=== PATIENT | female | born 1985 | race Hispanic/Latino ===

== ENCOUNTER 2017-02-23 14:59 | Emergency (ER) | payer MEDICAID ==
--- NOTE | 2017-02-23 16:13 | Emergency Department Report ---
HPI - General Chief Complaint: Psych Time Seen by Provider: 02/23/17 15:59 - HPI HPI: Room 13 The patient is a 32-year-old female presenting with chief complaint of suicidal ideation. The patient has a history of schizoaffective disorder, PTSD and anxiety. The patient admits to being suicidal ideation for "a while." The patient states she planned on overdosing on pills. Patient denies actually attempting to harm herself. The patient is hyperverbal states that she is 89 years old. Please states they were called because the patient had a bag full of pills that she threatened to take Location: Mental state Duration: "A while" Quality: Suicidal Severity: Severe Modifying factors: [see above] Context: [see above] Mode of transportation: [not driving] ED Past Medical Hx - Past Medical History Previous Medical History?: Yes Hx Psychiatric Treatment: Yes (Schizoaffective disorder, PTSD, Anxiety) Hx HIV: Yes - Surgical History Past Surgical History?: Yes Additional Surgical History: Oral - Family History Family history: no significant - Social History Smoking Status: Current Every Day Smoker - Medications Home Medications: Home Medications Medication Instructions Recorded Confirmed Last Taken Type Abacavir/Dolutegravir/Lamivudi 1 each PO DAILY 02/23/17 02/23/17 Unknown History [Triumeq Tablet] Buspirone HCl [busPIRone] 30 mg PO BID 02/23/17 02/23/17 Unknown History OXcarbazepine 600 mg PO Q12H 02/23/17 02/23/17 Unknown History OXcarbazepine [Trileptal] 600 mg PO BID 02/23/17 02/23/17 Unknown History Olanzapine [ZyPREXA] 20 mg PO HS 02/23/17 02/23/17 Unknown History Formula Tablet 1 tab PO DAILY 02/23/17 02/23/17 Unknown History Tenofovir [Viread] 300 mg PO QDAY 02/23/17 02/23/17 Unknown History busPIRone 10 mg PO DAILY 02/23/17 02/23/17 Unknown History valACYclovir 500 mg PO DAILY 02/23/17 02/23/17 Unknown History ED Review of Systems ROS: Stated complaint: MH Other details as noted in HPI Comment: Unobtainable due to pts medical conditions Constitutional: denies: chills, fever Eyes: denies: eye pain, eye discharge, vision change ENT: denies: ear pain, throat pain Respiratory: denies: cough, shortness of breath, wheezing Cardiovascular: denies: chest pain, palpitations Endocrine: no symptoms reported Gastrointestinal: denies: abdominal pain, nausea, diarrhea Genitourinary: denies: urgency, dysuria, discharge Psychiatric: suicidal thoughts Physical Exam - Physical Exam Vital Signs: Vital Signs 02/23/17 15:06 Temperature 98.8 F Pulse Rate 76 Respiratory 18 Rate Blood Pressure 116/77 O2 Sat by Pulse 99 Oximetry Physical Exam: GENERAL: The patient is well-developed well-nourished female sitting on stretcher hyperverbal. [] HEENT: Normocephalic. Atraumatic. Extraocular motions are intact. Patient has moist mucous membranes. NECK: Supple. Trachea midline CHEST/LUNGS: Clear to auscultation. There is no respiratory distress noted. HEART/CARDIOVASCULAR: Regular. There is no tachycardia. There is no gallop rub or murmur. ABDOMEN: Abdomen is soft, nontender. Patient has normal bowel sounds. There is no abdominal distention. SKIN: There is no rash. There is no edema. There is no diaphoresis. NEURO: The patient is awake, and alert. The patient is cooperative. The patient has normal speech MUSCULOSKELETAL: There is no evidence of acute injury. ED Course Vital Signs 02/23/17 15:06 Temperature 98.8 F Pulse Rate 76 Respiratory 18 Rate Blood Pressure 116/77 O2 Sat by Pulse 99 Oximetry ED Medical Decision Making - Lab Data Result diagrams: 02/23/17 15:36 02/23/17 15:36 Laboratory Tests 02/23/17 02/23/17 02/23/17 15:36 15:36 15:36 WBC 4.3 L RBC 3.75 Hgb 13.5 Hct 37.8 MCV 101 H MCH 36 H MCHC 36 H RDW 13.7 Plt Count 149 Lymph % (Auto) 22.4 [place] % (Auto) 5.3 Eos % (Auto) 0.1 Baso % (Auto) 0.8 Lymph # 1.0 L [place] # 0.2 Eos # 0.0 Baso # 0.0 Seg Neutrophils % 71.1 H Seg Neutrophils # 2.6 Sodium 129 L Potassium 3.3 L Chloride 93.2 L Carbon Dioxide 19 L Anion Gap 20 BUN < 1 L Creatinine 0.6 L Estimated GFR > 60 BUN/Creatinine Ratio 1.66 Glucose 121 H Calcium 8.3 L Salicylates Acetaminophen Plasma/Serum Alcohol < 0.01 02/23/17 02/23/17 16:00 16:00 WBC RBC Hgb Hct MCV MCH MCHC RDW Plt Count Lymph % (Auto) [place] % (Auto) Eos % (Auto) Baso % (Auto) Lymph # [place] # Eos # Baso # Seg Neutrophils % Seg Neutrophils # Sodium Potassium Chloride Carbon Dioxide Anion Gap BUN Creatinine Estimated GFR BUN/Creatinine Ratio Glucose Calcium Salicylates < 0.3 L Acetaminophen < 15.0 Plasma/Serum Alcohol - Differential Diagnosis suicidal ideation Critical care attestation.: If time is entered above; I have spent that time in minutes in the direct care of this critically ill patient, excluding procedure time. ED Disposition Clinical Impression: Suicidal ideation Disposition: DC/[place]-65 PSY HOSP/PSY UNIT Is pt being admited?: No Does the pt Need Aspirin: No Condition: Serious Time of Disposition: 18:55 (awaiting acceptance)
[2017-02-23 16:17] LABS: Eosinophils % (Auto) 0.1 % (0.0-4.3)
[2017-02-23 16:33] LABS: Anion Gap 20 mmol/L; Calcium 8.3 mg/dL (8.4-10.2); Carbon Dioxide 19 mmol/L (22-30); Chloride 93.2 mmol/L (98-107); Glucose 121 mg/dL (65-100); Potassium 3.3 mmol/L (3.6-5.0); Sodium 129 mmol/L (137-145)
[2017-02-23 16:52] LABS: BUN/Creatinine Ratio 1.66; Blood Urea Nitrogen < 1 mg/dL (7-17)
[2017-02-23 17:24] LABS: Basophils % (Auto) 0.8 % (0.0-1.8); Hematocrit 37.8 % (30.3-42.9); Hemoglobin 13.5 gm/dl (10.1-14.3); Mean Corpuscular HGB Conc 36 % (30-34); Mean Corpuscular Hemoglobin 36 pg (28-32); Mean Corpuscular Volume 101 fl (79-97); Platelet Count 149 K/mm3 (140-440); Red Blood Count 3.75 M/mm3 (3.65-5.03); Red Cell Distribution Width 13.7 % (13.2-15.2); White Blood Count 4.3 K/mm3 (4.5-11.0)
[2017-02-23] MEDS ORDERED: HALDOL IM PRN (18:53)
[2017-02-23] MEDS ORDERED: ATIVAN IM PRN (18:53)
[2017-02-23] MEDS ORDERED: BENADRYL IM PRN (18:53)
[2017-02-23] MEDS ORDERED: K-DUR PO ONE (18:55)
[2017-02-23 19:45] LABS: Urine Drugs of Abuse Note Disclamer
[2017-02-23 19:54] LABS: Bilirubin,Urine NEG (Negative); Blood,Urine NEG (Negative); Ketones,Urine NEG (Negative); Leukocyte Esterase,Urine TR (Negative); Mucus,Urine FEW /HPF; Nitrite,Urine NEG (Negative); Protein,Urine <15 mg/dL mg/dL (Negative); Urobilinogen,Urine < 2.0 mg/dL (<2.0); WBC,Urine < 1.0 /HPF (0.0-6.0)
[2017-02-24 01:49] VITALS: BP 110/56
== END 2017-02-24 00:30 ==
LOC: ED 14:59
DX: R45.851 Suicidal ideations (principal); F20.9 Schizophrenia, unspecified; F41.9 Anxiety disorder, unspecified; Z88.8 Allergy status to other drugs, medicaments and biological substances
CPT/HCPCS: 36415; 80048; 80307; 81001; 81025; 85025; 99285; G0480; 80320

== ENCOUNTER 2017-12-03 20:48 | Emergency (ER) | payer MEDICAID ==
--- NOTE | 2017-12-03 21:25 | Emergency Department Report ---
HPI - General Chief Complaint: Psych Time Seen by Provider: 12/03/17 21:00 - HPI HPI: The patient is a 32-year-old female presents for evaluation of mental health. The patient reports constant severe sadness, depression, hopelessness for the past 5 days, elicited by the of her father 5 days ago. She also reports positive suicidal ideations for the past 2 days. The patient denies fever, headache, unexplained weight loss or weight gain, heat or cold intolerance, skin , hair, or nail changes, neuro deficits, homicidal ideations, or auditory or visual hallucinations. ED Past Medical Hx - Past Medical History Previous Medical History?: Yes Hx Psychiatric Treatment: Yes (Schizoaffective disorder, PTSD, Anxiety) Hx HIV: Yes - Surgical History Past Surgical History?: No Additional Surgical History: Oral - Social History Smoking Status: Current Every Day Smoker - Medications Home Medications: Home Medications Medication Instructions Recorded Confirmed Last Taken Type Abacavir/Dolutegravir/Lamivudi 1 each PO DAILY 02/23/17 02/23/17 Unknown History [Triumeq Tablet] Buspirone HCl [busPIRone] 30 mg PO BID 02/23/17 02/23/17 Unknown History OXcarbazepine 600 mg PO Q12H 02/23/17 02/23/17 Unknown History OXcarbazepine [Trileptal] 600 mg PO BID 02/23/17 02/23/17 Unknown History Olanzapine [ZyPREXA] 20 mg PO HS 02/23/17 02/23/17 Unknown History Formula Tablet 1 tab PO DAILY 02/23/17 02/23/17 Unknown History Tenofovir [Viread] 300 mg PO QDAY 02/23/17 02/23/17 Unknown History busPIRone 10 mg PO DAILY 02/23/17 02/23/17 Unknown History valACYclovir 500 mg PO DAILY 02/23/17 02/23/17 Unknown History ED Review of Systems ROS: Stated complaint: MH EVAL/MED CLEARANCE Other details as noted in HPI Constitutional: denies: fever ENT: denies: throat or neck pain Respiratory: denies: cough shortness of breath Cardiovascular: denies: chest pain Endocrine: denies unexplained weight loss or gain Gastrointestinal: denies: abdominal pain, nausea Genitourinary: denies: dysuria Musculoskeletal: denies: leg swelling Skin: denies: rash Neurological: denies: headache Hematological/Lymphatic: denies: easy bleeding or easy bruising Psych: reports sadness or hopelessness Comment: All other systems reviewed and negative Physical Exam - Physical Exam Vital Signs: Vital Signs 12/03/17 21:07 Temperature 98.7 F Pulse Rate 72 Respiratory 17 Rate Blood Pressure 127/89 Physical Exam: General: well-nourished, well-developed, no acute distress Head: Normocephalic, atraumatic Eyes: normal sclera ENT: Mucous membranes are pink and moist Neck: trachea midline, neck supple, No neck stiffness, no cervical adenopathy Respiratory: Breath sounds equal bilaterally, no wheezing, rales, or rhonchi Cardio: S1 and S2 present, no murmurs, rubs, gallops, capillary refill is brisk Abdomen: Normoactive bowel sounds, soft abdomen, no rigidity, no guarding or rebound tenderness Chest WALL/Back: No tenderness to palpation of the chest wall, no CVA tenderness with percussion Musc: No pitting edema Skin: No rash Neuro: no facial drooping, normal speech Psych: flat affect, depressed mood, poor insight, + SI ED Course Vital Signs 12/03/17 21:07 Temperature 98.7 F Pulse Rate 72 Respiratory 17 Rate Blood Pressure 127/89 ED Medical Decision Making - Lab Data Result diagrams: 12/03/17 21:18 12/03/17 21:18 - Medical Decision Making The patient was seen and examined by myself. The patient is placed on a panel monitor and continuous pulse ox. On initial evaluation, the patient was found to be in no distress. Labs are obtained. Lab results are grossly unremarkable. The patient is medically clear. Mental health is consulted. Mental health evaluates the patient and agrees that the patient is at risk of harm to self. A 1013 is completed. The patient will be admitted to a psychiatric facility once bed placement is obtained. Critical care attestation.: If time is entered above; I have spent that time in minutes in the direct care of this critically ill patient, excluding procedure time. ED Disposition Clinical Impression: Suicidal ideation, Acute psychosis Disposition: DC/TX-65 PSY HOSP/PSY UNIT Is pt being admited?: No Does the pt Need Aspirin: No Condition: Stable Referrals: PRIMARY CARE, [Primary Care Provider] - 3-5 Days Time of Disposition: 22:00
[2017-12-03 21:32] LABS: Basophils % (Auto) 0.7 % (0.0-1.8); Eosinophils # (Auto) 0.1 K/mm3 (0.0-0.4); Eosinophils % (Auto) 0.8 % (0.0-4.3); Hematocrit 40.7 % (30.3-42.9); Hemoglobin 14.4 gm/dl (10.1-14.3); Lymphocytes # (Auto) 1.5 K/mm3 (1.2-5.4); Mean Corpuscular HGB Conc 35 % (30-34); Mean Corpuscular Hemoglobin 34 pg (28-32); Mean Corpuscular Volume 96 fl (79-97); Monocytes # (Auto) 0.4 K/mm3 (0.0-0.8); Monocytes % (Auto) 5.4 % (0.0-7.3); Platelet Count 142 K/mm3 (140-440); Red Blood Count 4.23 M/mm3 (3.65-5.03); Red Cell Distribution Width 12.8 % (13.2-15.2)
[2017-12-03 21:33] LABS: Bilirubin,Urine NEG (Negative); Blood,Urine SM (Negative); Color,Urine Straw (Yellow); Protein,Urine <15 mg/dL mg/dL (Negative); RBC,Urine < 1.0 /HPF (0.0-6.0); Urobilinogen,Urine < 2.0 mg/dL (<2.0)
[2017-12-03 21:49] LABS: BUN/Creatinine Ratio 4; Blood Urea Nitrogen 2 mg/dL (7-17); Calcium 8.6 mg/dL (8.4-10.2); Hemolysis Index 10
[2017-12-03 21:51] LABS: Amphetamine Screen,Urine PRESUMPTIVE NEGATIVE; Benzodiazepines Screen,Urine PRESUMPTIVE NEGATIVE; Cannabinoid Screen,Urine PRESUMPTIVE NEGATIVE; Cocaine Screen,Urine PRESUMPTIVE NEGATIVE; Methadone Screen,Urine PRESUMPTIVE NEGATIVE; Opiate Screen,Urine PRESUMPTIVE NEGATIVE
[2017-12-04 02:58] VITALS: BP 115/75
== END 2017-12-04 02:56 ==
LOC: ED 20:48
DX: F23 Brief psychotic disorder (principal); F25.9 Schizoaffective disorder, unspecified; F43.10 Post-traumatic stress disorder, unspecified; F41.9 Anxiety disorder, unspecified; F17.200 Nicotine dependence, unspecified, uncomplicated; Z88.1 Allergy status to other antibiotic agents; Z88.8 Allergy status to other drugs, medicaments and biological substances
CPT/HCPCS: 36415; 80048; 80307; 81001; 84703; 85025; 99285; G0480; 80320

== ENCOUNTER 2019-08-14 13:46 | Emergency (ER) | payer MEDICAID ==
--- NOTE | 2019-08-14 14:46 | Event Note ---
ED Screening Note Date of service: 08/14/19 Time: 14:41 ED Screening Note: This is a 34 y.o. F. that presents to the ER with LLE swelling and pain for 3-4 days. She also reports LUE weakness. Patient states she was taking eliquis for 3 months for a DVT to LLE and quit taking it 2 months. PMH of HIV and schizophrenia This initial assessment/diagnostic orders/clinical plan/treatment(s) is/are subject to change based on patients health status, clinical progression and re- assessment by fellow clinical providers in the ED. Further treatment and workup at subsequent clinical providers discretion. Patient/guardian urged not to elope from the ED as their condition may be serious if not clinically assessed and managed. Initial orders include: Doppler of LLE Labs
[2019-08-14 15:39] LABS: Alanine Aminotransferase 9 units/L (7-56); Albumin 3.3 g/dL (3.9-5); BUN/Creatinine Ratio 11; Blood Urea Nitrogen 8 mg/dL (7-17); Calcium 9.2 mg/dL (8.4-10.2); Hemolysis Index 2
[2019-08-14 16:10] LABS: Basophils % (Auto) 0.2 % (0.0-1.8); Hematocrit 30.9 % (30.3-42.9); Hemoglobin 10.2 gm/dl (10.1-14.3); Lymphocytes # (Auto) 0.8 K/mm3 (1.2-5.4); Mean Corpuscular HGB Conc 33 % (30-34); Mean Corpuscular Volume 93 fl (79-97); Monocytes # (Auto) 0.6 K/mm3 (0.0-0.8); Monocytes % (Auto) 4.9 % (0.0-7.3); Platelet Count 430 K/mm3 (140-440); Red Blood Count 3.33 M/mm3 (3.65-5.03); Red Cell Distribution Width 19.4 % (13.2-15.2)
--- NOTE | 2019-08-14 17:16 | Vascular Lab Report ---
DUPLEX DOPPLER LOWER EXTREMITY VEINS, LEFT INDICATION: Left leg pain and swelling. TECHNIQUE: Duplex doppler imaging was performed through the veins of the left lower extremity using venous compr ession and other maneuvers. COMPARISON: None available. FINDINGS: Common femoral vein: Near occlusive thrombus. Superficial femoral vein: Near occlusive thrombus. Popliteal vein: Near occlusive thrombus. Calf veins: Near occlusive thrombus. Additional findings: There is also occlusive thrombus in the greater saphenous vein in the upper thig h and there is nonocclusive thrombus in the visualized left external iliac vein. IMPRESSION: Near occlusive deep venous thrombosis involving the majority of the left lower extremity. Signer Name: Ezequiel Wolff MD Signed: 08/14/2019 5:11 PM Workstation Name: [id number]
--- NOTE | 2019-08-14 17:16 | Vascular Lab Report ---
Left upper extremity venous Doppler INDICATION: Possible DVT. Left arm numbness. COMPARISON: None available. FINDINGS: No superficial or deep venous thrombosis is seen along the left upper extremity. The included soft tissues are unremarkable. IMPRESSION: No sonographic evidence of DVT in the left upper extremity. Signer Name: Johnson Junior MD Signed: 08/14/2019 5:12 PM Workstation Name: [id number]
--- NOTE | 2019-08-14 18:50 | Emergency Department Report ---
ED Neuro Deficit HPI - General Chief Complaint: Weakness Stated Complaint: LEFT LEG PAIN Time Seen by Provider: 08/14/19 18:35 Source: patient Mode of arrival: Wheelchair Limitations: Physical Limitation - History of Present Illness Initial Comments: Patient is a 34-year-old female that presents emergency room with complaints of left leg pain 3 days and left arm weakness 3 days. Patient states unable to walk due to her left leg pain. Patient states she is having numbness in her left arm as well. Patient states that she is able to walk due to the left leg pain. Patient denies fever chills. Patient states she had a history of DVTs but is not taking any anticoagulation therapy. Patient states she's been to multiple hospitals but keeps leaving AMA. -: Sudden Location: left arm, left leg Presenting Symptoms: Present: Weak/Paralyzed One Side History of same: Yes Place: home Severity: severe Improves With: none Worsens With: none On Anticoagulants: No Context: sudden onset Associated Symptoms: weakness. denies: confusion, chest pain, cough, diaphoresis, fever/chills, headaches, loss of appetite, malise, nausea/vomiting, vertigo, seizures, shortness of breath, syncope - Related Data Home Medications: Home Medications Medication Instructions Recorded Confirmed Last Taken Abacavir/Dolutegravir/Lamivudi 1 each PO DAILY 02/23/17 08/14/19 Unknown [Triumeq Tablet] Buspirone HCl [busPIRone] 30 mg PO BID 02/23/17 08/14/19 Unknown OXcarbazepine 600 mg PO Q12H 02/23/17 08/14/19 Unknown Olanzapine [ZyPREXA] 20 mg PO HS 02/23/17 08/14/19 Unknown Tenofovir [Viread] 300 mg PO QDAY 02/23/17 08/14/19 Unknown valACYclovir 500 mg PO DAILY 02/23/17 08/14/19 Unknown clonazePAM [KlonoPIN] 2 mg PO BID 08/14/19 08/14/19 Unknown Previous Rx's Medication Instructions Recorded Last Taken Type Apixaban [Eliquis] 5 mg PO BID #40 tablet 08/14/19 Unknown Rx Allergies/Adverse Reactions: Allergies Allergy/AdvReac Type Severity Reaction Status Date / Time divalproex sodium Allergy Unknown Verified 02/23/17 15:13 [From Depakote] risperidone [From Risperdal] Allergy Unknown Verified 02/23/17 15:13 ED Review of Systems ROS: Stated complaint: LEFT LEG PAIN Other details as noted in HPI Constitutional: denies: chills, fever Eyes: denies: eye pain, eye discharge, vision change ENT: denies: ear pain, throat pain Respiratory: denies: cough, shortness of breath, wheezing Cardiovascular: denies: chest pain, palpitations Endocrine: no symptoms reported Gastrointestinal: denies: abdominal pain, nausea, diarrhea Genitourinary: denies: urgency, dysuria, discharge Musculoskeletal: denies: back pain, joint swelling, arthralgia Skin: denies: rash, lesions Neurological: weakness. denies: headache, paresthesias Psychiatric: denies: anxiety, depression Hematological/Lymphatic: denies: easy bleeding, easy bruising ED Past Medical Hx - Past Medical History Previous Medical History?: Yes Hx Psychiatric Treatment: Yes (Schizoaffective disorder, PTSD, Anxiety) Hx HIV: Yes - Surgical History Past Surgical History?: Yes Additional Surgical History: Oral - Family History Family history: no significant - Social History Smoking Status: Heavy Tobacco Smoker Substance Use Type: None - Medications Home Medications: Home Medications Medication Instructions Recorded Confirmed Last Taken Type Abacavir/Dolutegravir/Lamivudi 1 each PO DAILY 02/23/17 08/14/19 Unknown History [Triumeq Tablet] Buspirone HCl [busPIRone] 30 mg PO BID 02/23/17 08/14/19 Unknown History OXcarbazepine 600 mg PO Q12H 02/23/17 08/14/19 Unknown History Olanzapine [ZyPREXA] 20 mg PO HS 02/23/17 08/14/19 Unknown History Tenofovir [Viread] 300 mg PO QDAY 02/23/17 08/14/19 Unknown History valACYclovir 500 mg PO DAILY 02/23/17 08/14/19 Unknown History Apixaban [Eliquis] 5 mg PO BID #40 tablet 08/14/19 Unknown Rx clonazePAM [KlonoPIN] 2 mg PO BID 08/14/19 08/14/19 Unknown History ED Neuro Physical Exam - General Limitations: No Limitations General appearance: alert, in no apparent distress Suspected Stroke: Yes - Head Head exam: Present: atraumatic, normocephalic - Eye Eye exam: Present: normal appearance - ENT ENT exam: Present: mucous membranes moist - Neck Neck exam: Present: normal inspection - Respiratory Respiratory exam: Present: respiratory distress, rhonchi - Cardiovascular Cardiovascular Exam: Present: regular rate, normal rhythm. Absent: systolic murmur, diastolic murmur, rubs, gallop - GI/Abdominal GI/Abdominal exam: Present: soft, normal bowel sounds. Absent: distended, tenderness - Rectal Rectal exam: Present: deferred - Extremities Exam Extremities exam: Present: tenderness, pedal edema, calf tenderness - Back Exam Back exam: Present: normal inspection - Neurological Exam Neurological exam: Present: alert, oriented X3 - NIHSS Assessment Interval: Baseline 1a. Level of Consciousness: alert/keenly responsive 1b. LOC Questions: answers both correctly 1c. LOC Commands: performs tasks correctly 2. Best Gaze: normal 3. Visual: no visual loss 4. Facial Palsy: normal symmetrical movement 5b. Motor Arm Right: no drift 5a. Motor Arm Left: drift 6a. Motor Leg Left: no drift 6b. Motor Leg Right: no drift 7. Limb Ataxia: absent 8. Sensory: normal 9. Best Language: no aphasia 10. Dysarthria: normal 11. Extinction/Inattention: no abnormality Total Score: 1 Stroke Severity: Minor Stroke - Psychiatric Psychiatric exam: Present: normal affect, normal mood - Skin Skin exam: Present: warm, dry, intact, normal color. Absent: rash ED Course Vital Signs 08/14/19 08/14/19 08/14/19 13:51 18:53 18:59 Temperature 97.9 F Pulse Rate 90 Respiratory 16 18 Rate Blood Pressure 101/62 109/67 Blood Pressure [Left] O2 Sat by Pulse 97 99 Oximetry 08/14/19 08/14/19 08/14/19 19:01 19:13 19:23 Temperature 98.1 F Pulse Rate 122 H 99 H Respiratory 26 H Rate Blood Pressure 107/58 107/58 Blood Pressure 103/60 [Left] O2 Sat by Pulse 98 Oximetry 08/14/19 08/14/19 08/14/19 19:30 19:46 20:00 Temperature Pulse Rate 116 H 133 H 112 H Respiratory 14 27 H 21 Rate Blood Pressure 107/58 107/58 107/58 Blood Pressure [Left] O2 Sat by Pulse Oximetry 08/14/19 08/14/19 08/14/19 20:16 20:30 21:00 Temperature Pulse Rate 124 H 123 H Respiratory 15 20 Rate Blood Pressure 103/60 108/66 Blood Pressure [Left] O2 Sat by Pulse 97 Oximetry 08/14/19 08/14/19 08/14/19 21:13 21:16 21:30 Temperature Pulse Rate 124 H 122 H 123 H Respiratory Rate Blood Pressure 125/71 125/71 97/78 Blood Pressure [Left] O2 Sat by Pulse Oximetry 08/14/19 08/14/19 08/14/19 21:46 22:00 22:40 Temperature Pulse Rate 120 H Respiratory 14 Rate Blood Pressure 108/66 120/68 Blood Pressure [Left] O2 Sat by Pulse 96 Oximetry 08/14/19 23:00 Temperature Pulse Rate Respiratory Rate Blood Pressure 103/54 Blood Pressure [Left] O2 Sat by Pulse Oximetry - Reevaluation(s) Reevaluation #1: Initial evaluation done. Patient found to have left arm weakness and drift. Patient is outside the window of TPA however we will run a stroke protocol but the patient is not a candidate for TPA. Patient had a ultrasound done and it shows a nearly occlusive DVT in his entire left leg. Patient will be placed on heparin once the patient has a head CT. Patient also has abnormal lung sounds on lung exam and patient will have a chest x-ray. 08/14/19 18:53 Reevaluation #2: CT head shows no hemorrhage. Patient has on his her CT A embolic phenomenon. Patient placed on heparin for these findings as well as her DVT. Patient will still have a CTA of the head and neck. Once the CTA is resulted, the heparin drip will be started 08/14/19 21:46 Reevaluation #3: Patient states she wants to leave the hospital so she can go smoke. Patient states she start of waiting. Patient states she will sign the AMA form. I discussed the risk of leaving hospital AGAINST MEDICAL ADVICE. Patient voiced understanding risk of leaving AMA. Patient signed AMA form. I discussed all results with patient. Patient voiced understanding of results. The patient is alert and oriented 4. 08/14/19 23:46 - Lab Data Result diagrams: 08/14/19 21:50 08/14/19 15:00 Lab Results 08/14/19 08/14/19 08/14/19 Range/Units 15:00 15:00 18:56 WBC 12.9 H (4.5-11.0) K/mm3 RBC 3.33 L (3.65-5.03) M/mm3 Hgb 10.2 (10.1-14.3) gm/dl Hct 30.9 (30.3-42.9) % MCV 93 (79-97) fl MCH 31 (28-32) pg MCHC 33 (30-34) % RDW 19.4 H (13.2-15.2) % Plt Count 430 (140-440) K/mm3 Lymph % (Auto) 6.0 L (13.4-35.0) % [place] % (Auto) 4.9 (0.0-7.3) % Eos % (Auto) 0.0 (0.0-4.3) % Baso % (Auto) 0.2 (0.0-1.8) % Lymph # 0.8 L (1.2-5.4) K/mm3 [place] # 0.6 (0.0-0.8) K/mm3 Eos # 0.0 (0.0-0.4) K/mm3 Baso # 0.0 (0.0-0.1) K/mm3 Seg Neutrophils % [employer] Seg Neutrophils # 11.5 H (1.8-7.7) K/mm3 PT 13.3 (12.2-14.9) Sec. INR 1.00 (0.87-1.13) APTT 41.6 H (24.2-36.6) Sec. Thrombin Time 15.9 (15.1-19.6) Sec. Sodium 123 L (137-145) mmol/L Potassium 4.1 (3.6-5.0) mmol/L Chloride 88.5 L (98-107) mmol/L Carbon Dioxide 19 L (22-30) mmol/L Anion Gap 20 mmol/L BUN 8 (7-17) mg/dL Creatinine 0.7 (0.7-1.2) mg/dL Estimated GFR > 60 ml/min BUN/Creatinine Ratio 11 % Glucose 84 (65-100) mg/dL Calcium 9.2 (8.4-10.2) mg/dL Total Bilirubin 0.50 (0.1-1.2) mg/dL AST 18 (5-40) units/L ALT 9 (7-56) units/L Alkaline Phosphatase 185 H (35-129) units/L Total Creatine Kinase (30-135) units/L CK-MB (CK-2) (0.0-4.0) ng/mL CK-MB (CK-2) Rel Index (0-4) Troponin T (0.00-0.029) ng/mL Total Protein 8.9 H (6.3-8.2) g/dL Albumin 3.3 L (3.9-5) g/dL Albumin/Globulin Ratio 0.6 % Urine Color (Yellow) Urine Turbidity (Clear) Urine pH (5.0-7.0) Ur Specific [place] (1.003-1.030) Urine Protein (Negative) mg/dL Urine Glucose (UA) (Negative) mg/dL Urine Ketones (Negative) mg/dL Urine Blood (Negative) Urine Nitrite (Negative) Urine Bilirubin (Negative) Urine Urobilinogen (<2.0) mg/dL Ur Leukocyte Esterase (Negative) Urine WBC (Auto) (0.0-6.0) /HPF Urine RBC (Auto) (0.0-6.0) /HPF Urine Opiates Screen Urine Methadone Screen Ur Barbiturates Screen Ur Phencyclidine Scrn Ur Amphetamines Screen U Benzodiazepines Scrn Urine Cocaine Screen U Marijuana (THC) Screen Drugs of Abuse Note Plasma/Serum Alcohol (0-0.07) % 08/14/19 08/14/19 08/14/19 Range/Units 18:56 18:56 19:12 WBC (4.5-11.0) K/mm3 RBC (3.65-5.03) M/mm3 Hgb (10.1-14.3) gm/dl Hct (30.3-42.9) % MCV (79-97) fl MCH (28-32) pg MCHC (30-34) % RDW (13.2-15.2) % Plt Count (140-440) K/mm3 Lymph % (Auto) (13.4-35.0) % [place] % (Auto) (0.0-7.3) % Eos % (Auto) (0.0-4.3) % Baso % (Auto) (0.0-1.8) % Lymph # (1.2-5.4) K/mm3 [place] # (0.0-0.8) K/mm3 Eos # (0.0-0.4) K/mm3 Baso # (0.0-0.1) K/mm3 Seg Neutrophils % Seg Neutrophils # (1.8-7.7) K/mm3 PT (12.2-14.9) Sec. INR (0.87-1.13) APTT (24.2-36.6) Sec. Thrombin Time (15.1-19.6) Sec. Sodium (137-145) mmol/L Potassium (3.6-5.0) mmol/L Chloride (98-107) mmol/L Carbon Dioxide (22-30) mmol/L Anion Gap mmol/L BUN (7-17) mg/dL Creatinine (0.7-1.2) mg/dL Estimated GFR ml/min BUN/Creatinine Ratio % Glucose (65-100) mg/dL Calcium (8.4-10.2) mg/dL Total Bilirubin (0.1-1.2) mg/dL AST (5-40) units/L ALT (7-56) units/L Alkaline Phosphatase (35-129) units/L Total Creatine Kinase 44 (30-135) units/L CK-MB (CK-2) < 1.0 (0.0-4.0) ng/mL CK-MB (CK-2) Rel Index 2.2 (0-4) Troponin T < 0.010 (0.00-0.029) ng/mL Total Protein (6.3-8.2) g/dL Albumin (3.9-5) g/dL Albumin/Globulin Ratio % Urine Color Yellow (Yellow) Urine Turbidity Clear (Clear) Urine pH 6.0 (5.0-7.0) Ur Specific [place] 1.009 (1.003-1.030) Urine Protein <15 mg/dl (Negative) mg/dL Urine Glucose (UA) Neg (Negative) mg/dL Urine Ketones Neg (Negative) mg/dL Urine Blood Neg (Negative) Urine Nitrite Neg (Negative) Urine Bilirubin Neg (Negative) Urine Urobilinogen < 2.0 (<2.0) mg/dL Ur Leukocyte Esterase Neg (Negative) Urine WBC (Auto) < 1.0 (0.0-6.0) /HPF Urine RBC (Auto) 1.0 (0.0-6.0) /HPF Urine Opiates Screen Urine Methadone Screen Ur Barbiturates Screen Ur Phencyclidine Scrn Ur Amphetamines Screen U Benzodiazepines Scrn Urine Cocaine Screen U Marijuana (THC) Screen Drugs of Abuse Note Plasma/Serum Alcohol < 0.01 (0-0.07) % 08/14/19 08/14/19 08/14/19 Range/Units 19:12 21:50 21:50 WBC (4.5-11.0) K/mm3 RBC (3.65-5.03) M/mm3 Hgb 9.4 L (10.1-14.3) gm/dl Hct 27.8 L (30.3-42.9) % MCV (79-97) fl MCH (28-32) pg MCHC (30-34) % RDW (13.2-15.2) % Plt Count 380 (140-440) K/mm3 Lymph % (Auto) (13.4-35.0) % [place] % (Auto) (0.0-7.3) % Eos % (Auto) (0.0-4.3) % Baso % (Auto) (0.0-1.8) % Lymph # (1.2-5.4) K/mm3 [place] # (0.0-0.8) K/mm3 Eos # (0.0-0.4) K/mm3 Baso # (0.0-0.1) K/mm3 Seg Neutrophils % Seg Neutrophils # (1.8-7.7) K/mm3 PT 12.9 (12.2-14.9) Sec. INR 0.96 (0.87-1.13) APTT 44.4 H (24.2-36.6) Sec. Thrombin Time (15.1-19.6) Sec. Sodium (137-145) mmol/L Potassium (3.6-5.0) mmol/L Chloride (98-107) mmol/L Carbon Dioxide (22-30) mmol/L Anion Gap mmol/L BUN (7-17) mg/dL Creatinine (0.7-1.2) mg/dL Estimated GFR ml/min BUN/Creatinine Ratio % Glucose (65-100) mg/dL Calcium (8.4-10.2) mg/dL Total Bilirubin (0.1-1.2) mg/dL AST (5-40) units/L ALT (7-56) units/L Alkaline Phosphatase (35-129) units/L Total Creatine Kinase (30-135) units/L CK-MB (CK-2) (0.0-4.0) ng/mL CK-MB (CK-2) Rel Index (0-4) Troponin T (0.00-0.029) ng/mL Total Protein (6.3-8.2) g/dL Albumin (3.9-5) g/dL Albumin/Globulin Ratio % Urine Color (Yellow) Urine Turbidity (Clear) Urine pH (5.0-7.0) Ur Specific [place] (1.003-1.030) Urine Protein (Negative) mg/dL Urine Glucose (UA) (Negative) mg/dL Urine Ketones (Negative) mg/dL Urine Blood (Negative) Urine Nitrite (Negative) Urine Bilirubin (Negative) Urine Urobilinogen (<2.0) mg/dL Ur Leukocyte Esterase (Negative) Urine WBC (Auto) (0.0-6.0) /HPF Urine RBC (Auto) (0.0-6.0) /HPF Urine Opiates Screen Presumptive negative Urine Methadone Screen Presumptive negative Ur Barbiturates Screen Presumptive negative Ur Phencyclidine Scrn Presumptive negative Ur Amphetamines Screen Presumptive negative U Benzodiazepines Scrn Presumptive negative Urine Cocaine Screen Presumptive negative U Marijuana (THC) Screen Presumptive negative Drugs of Abuse Note Disclamer Plasma/Serum Alcohol (0-0.07) % - EKG Data -: EKG Interpreted by [place] EKG shows normal: sinus rhythm, axis, intervals, QRS complexes, ST-T waves Rate: tachycardia - Radiology Data Radiology results: report reviewed DUPLEX DOPPLER LOWER EXTREMITY VEINS, LEFT INDICATION: Left leg pain and swelling. TECHNIQUE: Duplex doppler imaging was performed through the veins of the left lower extremity using venous compression and other maneuvers. COMPARISON: None available. FINDINGS: Common femoral vein: Near occlusive thrombus. Superficial femoral vein: Near occlusive thrombus. Popliteal vein: Near occlusive thrombus. Calf veins: Near occlusive thrombus. Additional findings: There is also occlusive thrombus in the greater saphenous vein in the upper thigh and there is nonocclusive thrombus in the visualized left external iliac vein. IMPRESSION: Near occlusive deep venous thrombosis involving the majority of the left lower extremity. Left upper extremity venous Doppler INDICATION: Possible DVT. Left arm numbness. COMPARISON: None available. FINDINGS: No superficial or deep venous thrombosis is seen along the left upper extremity. The included soft tissues are unremarkable. IMPRESSION: No sonographic evidence of DVT in the left upper extremity. CT head/brain wo con INDICATION / CLINICAL INFORMATION: 34 years Female; Stroke symptoms. TECHNIQUE: Routine CT head without contrast. All CT scans at this location are performed using CT dose reduction for ALARA by means of automated exposure control. COMPARISON: None. FINDINGS: BRAIN / INTRACRANIAL CONTENTS: There is subtle loss of wagner/white differentiation in a few patchy areas of the frontoparietal region on the right. A few peripheral/subcortical areas of decreased attenuation seen in the posterior frontal lobe peripherally, as well. Embolic phenomenon to the right MCA territory is [id number] without diffusion imaging by MRI. There may be a similar finding in the right occipital temporal region, which could represent a different vascular territory. Otherwise, no acute hemorrhage, mass effect, midline shift, hydrocephalus, or acute, large territorial infarct. No chronic infarct or atrophy appreciated. No significant white matter abnormality. CRANIOCERVICAL JUNCTION: No significant abnormality. ORBITS: No significant abnormality of visualized orbits. SINUSES / MASTOIDS: No significant abnormality the visualized paranasal sinuses or mastoid air cells. ADDITIONAL FINDINGS: None. IMPRESSION: 1. I am concerned about small emboli to the right cerebral hemisphere as described above. Diffusion imaging by MRI might be helpful for further evaluation. CT angio head INDICATION / CLINICAL INFORMATION: 34 years Female; left arm weakness. TECHNIQUE: Thin cut axial images obtained through the head during IV bolus contrast administration. Sagittal, coronal, and 3 plane MIP reconstructions performed by the technologist. NASCET type criteria used evaluate stenoses. Automated exposure control utilized for radiation reduction purposes. COMPARISON: None available. FINDINGS: INTERNAL CAROTID ARTERIES: No significant narrowing appreciated. VERTEBROBASILAR SYSTEM: No significant narrowing appreciated. DISTAL BRANCHES: Distal branches of the anterior, middle, and posterior cerebral arteries are fairly symmetric in appearance and number. ANEURYSM: None identified. ADDITIONAL FINDINGS: Remainder of the surrounding soft tissues are grossly normal. IMPRESSION: No significant abnormality on this CTA of the head. CT angio neck INDICATION / CLINICAL INFORMATION: 34 years Female; left arm weakness. TECHNIQUE: Thin cut axial images obtained through the head during IV bolus contrast administration. Sagittal, coronal, and 3 plane MIP reconstructions performed by the technologist. NASCET type criteria used evaluate stenoses. All CT scans at this location are performed using CT dose reduction for ALARA by means of automated exposure control. COMPARISON: None available. FINDINGS: ARCH: Normal aortic arch branching suggested. CAROTID ARTERIES: The visualized common and internal carotid arteries are patent. The right carotid bifurcation region, there is significant soft tissue plaque identified. A portion of this plaque appears to project away from the wall into the lumen of the right internal carotid artery, for approximately 2 cm. This finding certainly could represent a source of embolic phenomenon which is suggested on recent CT of the head. Carotid Doppler analysis would best visualize this finding. VERTEBRAL ARTERIES: Codominant vertebral system seen. No significant stenosis appreciated. ADDITIONAL FINDINGS: Increased interstitial markings seen in the lung apices. Mild bronchial wall thickening suggested as well. A few small nodular densities are seen in the lung apices as well. Please clinically correlate. IMPRESSION: 1. No significant stenosis appreciated on this CTA of the neck. However, there is evidence of mural wall thrombus in the carotid bifurcation region on the right with a portion of the thrombus breaking away from the wall and projecting into the lumen of the proximal right internal carotid artery. Follow-up with carotid Doppler analysis, as clinically warranted. 2. Lung parenchymal changes identified. Dedicated CT of the chest may be of benefit. Critical Care Time: Yes Critical care time in (mins) excluding proc time.: 80 Critical care attestation.: If time is entered above; I have spent that time in minutes in the direct care of this critically ill patient, excluding procedure time. Critical Care Time: 80 minutes ED Disposition Clinical Impression: Left arm weakness, Leg pain, left, Lung mass, Hyponatremia DVT (deep venous thrombosis) Qualifiers: DVT location: lower extremity Affected thrombotic vein of extremity: unspecified vein of extremity Chronicity: acute Laterality: left Qualified Code(s): I82.402 - Acute embolism and thrombosis of unspecified deep veins of left lower extremity Carotid artery disease Qualifiers: Carotid artery disease type: unspecified Laterality: unspecified laterality Qualified Code(s): I73.9 - Peripheral vascular disease, unspecified Disposition: DC-07 LEFT AGAINST MED ADVICE Is pt being admited?: No Does the pt Need Aspirin: No Condition: Critical Instructions: Deep Venous Thrombosis (ED), Leg Edema (ED) Additional Instructions: Patient to follow up with primary care in 2-3 days. Patient to follow up with [place] tribunal member in 2-3 days. Patient to follow-up with vascular surgery in 2-3 days. Patient to return to ER if condition worsens or changes or new symptoms arise. Patient's take meds as directed. Patient to rest. Prescriptions: Apixaban [Eliquis] 5 mg PO BID #40 tablet Referrals: PRIMARY CAREMD [Primary Care Provider] - 2-3 Days TOÑA VERDUZCO MD [Staff Physician] - 2-3 Days SAWYER OCHOA MD [Staff Physician] - 2-3 Days CHASTITY ACOSTA MD [Staff Physician] - 2-3 Days Forms: AMA Form Time of Disposition: 23:53
[2019-08-14] MEDS ORDERED: CEFEPIME/NS 2 GM/100 ML 2 GM/100 ML BAG IV ONE (18:51)
[2019-08-14 19:23] LABS: Partial Thromboplastin Time 41.6 Sec. (24.2-36.6); Thrombin Time 15.9 Sec. (15.1-19.6)
[2019-08-14 19:24] LABS: Creatine Kinase MB < 1.0 ng/mL (0.0-4.0)
--- NOTE | 2019-08-14 20:21 | XRay Report ---
CHEST 1 VIEW 1851 INDICATION / CLINICAL INFORMATION: MAIN: cough; c/o pain in the left leg and numbness in the left arm , unable to walk; pat. uncooperative w/ removing bra. COMPARISON: None available. FINDINGS: SUPPORT DEVICES: None HEART / MEDIASTINUM: No significant abnormality. LUNGS / PLEURA: Diffuse chronic appearing increased interstitial markings are noted. In the lateral a spect of the left midlung approximately 4.3 cm mass is seen which appears cavitary. In the right base approximate 2 cm nodule is noted in smaller possible nodule is seen in the right mid to upper lung z one. Another probable nodule is seen in the retrocardiac region on the left. No definite areas of con solidation are seen. No pneumothorax. ADDITIONAL FINDINGS: No significant additional findings. IMPRESSION: Multiple bilateral pulmonary masses, at least one appearing to be cavitary. Probably thes e are metastatic though an atypical infectious process cannot be excluded. Signer Name: Yordan Curtis MD Signed: 08/14/2019 8:16 PM Workstation Name: [id number]
[2019-08-14] MEDS ORDERED: SODIUM CHLORIDE 0.9% 1000 ML 1,000 ML IV ONE (20:31)
[2019-08-14 20:39] LABS: Bilirubin,Urine NEG (Negative); Blood,Urine NEG (Negative); Color,Urine Yellow (Yellow); Protein,Urine <15 mg/dL mg/dL (Negative); Urobilinogen,Urine < 2.0 mg/dL (<2.0); WBC,Urine < 1.0 /HPF (0.0-6.0)
[2019-08-14 20:47] LABS: Amphetamine Screen,Urine PRESUMPTIVE NEGATIVE; Benzodiazepines Screen,Urine PRESUMPTIVE NEGATIVE; Cannabinoid Screen,Urine PRESUMPTIVE NEGATIVE; Cocaine Screen,Urine PRESUMPTIVE NEGATIVE; Methadone Screen,Urine PRESUMPTIVE NEGATIVE; Opiate Screen,Urine PRESUMPTIVE NEGATIVE
--- NOTE | 2019-08-14 21:09 | Cat Scan Report ---
CT head/brain wo con INDICATION / CLINICAL INFORMATION: 34 years Female; Stroke symptoms. TECHNIQUE: Routine CT head without contrast. All CT scans at this location are performed using CT dos e reduction for ALARA by means of automated exposure control. COMPARISON: None. FINDINGS: BRAIN / INTRACRANIAL CONTENTS: There is subtle loss of wagner/white differentiation in a few patchy are as of the frontoparietal region on the right. A few peripheral/subcortical areas of decreased attenua tion seen in the posterior frontal lobe peripherally, as well. Embolic phenomenon to the right MCA te rritory is [id number] without diffusion imaging by MRI. There may be a similar findi ng in the right occipital temporal region, which could represent a different vascular territory. Otherwise, no acute hemorrhage, mass effect, midline shift, hydrocephalus, or acute, large territori al infarct. No chronic infarct or atrophy appreciated. No significant white matter abnormality. CRANIOCERVICAL JUNCTION: No significant abnormality. ORBITS: No significant abnormality of visualized orbits. SINUSES / MASTOIDS: No significant abnormality the visualized paranasal sinuses or mastoid air cells. ADDITIONAL FINDINGS: None. IMPRESSION: 1. I am concerned about small emboli to the right cerebral hemisphere as described above. Diffusion i maging by MRI might be helpful for further evaluation. Signer Name: Colin Campos MD, III Signed: 08/14/2019 9:05 PM Workstation Name: [id number]
[2019-08-14] MEDS ORDERED: HEPARIN 10,000 UNITS/10 ML VIAL IV ONE (21:38)
[2019-08-14] MEDS ORDERED: HEPARIN/ 0.45% NACL DRIP 25,000 UNIT/500 ML BAG IV SCH (22:00)
[2019-08-14 22:02] LABS: Hematocrit 27.8 % (30.3-42.9); Hemoglobin 9.4 gm/dl (10.1-14.3)
[2019-08-14 22:13] LABS: INR 0.96 (0.87-1.13)
[2019-08-14 22:14] LABS: Partial Thromboplastin Time 44.4 Sec. (24.2-36.6)
[2019-08-14 23:16] VITALS: BP 103/54
--- NOTE | 2019-08-15 00:25 | Cat Scan Report ---
CT angio head INDICATION / CLINICAL INFORMATION: 34 years Female; left arm weakness. TECHNIQUE: Thin cut axial images obtained through the head during IV bolus contrast administration. S agittal, coronal, and 3 plane MIP reconstructions performed by the technologist. NASCET type criteria used evaluate stenoses. Automated exposure control utilized for radiation reduction purposes. COMPARISON: None available. FINDINGS: INTERNAL CAROTID ARTERIES: No significant narrowing appreciated. VERTEBROBASILAR SYSTEM: No significant narrowing appreciated. DISTAL BRANCHES: Distal branches of the anterior, middle, and posterior cerebral arteries are fairly symmetric in appearance and number. ANEURYSM: None identified. ADDITIONAL FINDINGS: Remainder of the surrounding soft tissues are grossly normal. IMPRESSION: No significant abnormality on this CTA of the head. Signer Name: Colin Campos MD, III Signed: 08/15/2019 12:21 AM Workstation Name: [id number]
--- NOTE | 2019-08-15 00:35 | Cat Scan Report ---
CT angio neck INDICATION / CLINICAL INFORMATION: 34 years Female; left arm weakness. TECHNIQUE: Thin cut axial images obtained through the head during IV bolus contrast administration. S agittal, coronal, and 3 plane MIP reconstructions performed by the technologist. NASCET type criteria used evaluate stenoses. All CT scans at this location are performed using CT dose reduction for ALAR A by means of automated exposure control. COMPARISON: None available. FINDINGS: ARCH: Normal aortic arch branching suggested. CAROTID ARTERIES: The visualized common and internal carotid arteries are patent. The right carotid bifurcation region, there is significant soft tissue plaque identified. A portion o f this plaque appears to project away from the wall into the lumen of the right internal carotid radha ry, for approximately 2 cm. This finding certainly could represent a source of embolic phenomenon whi ch is suggested on recent CT of the head. Carotid Doppler analysis would best visualize this finding. VERTEBRAL ARTERIES: Codominant vertebral system seen. No significant stenosis appreciated. ADDITIONAL FINDINGS: Increased interstitial markings seen in the lung apices. Mild bronchial wall thi ckening suggested as well. A few small nodular densities are seen in the lung apices as well. Please clinically correlate. IMPRESSION: 1. No significant stenosis appreciated on this CTA of the neck. However, there is evidence of mural w all thrombus in the carotid bifurcation region on the right with a portion of the thrombus breaking a way from the wall and projecting into the lumen of the proximal right internal carotid artery. Follow -up with carotid Doppler analysis, as clinically warranted. 2. Lung parenchymal changes identified. Dedicated CT of the chest may be of benefit. Signer Name: Colin Campos MD, III Signed: 08/15/2019 12:31 AM Workstation Name: [email or web address]
== END 2019-08-15 00:19 | disposition left against medical advice (07) ==
LOC: ED 13:46
DX: I82.402 Acute embolism and thrombosis of unspecified deep veins of left lower extremity (principal); I73.9 Peripheral vascular disease, unspecified; F17.200 Nicotine dependence, unspecified, uncomplicated; E87.1 Hypo-osmolality and hyponatremia; R91.8 Other nonspecific abnormal finding of lung field; F43.10 Post-traumatic stress disorder, unspecified; F25.8 Other schizoaffective disorders; Z79.899 Other long term (current) drug therapy; Z88.8 Allergy status to other drugs, medicaments and biological substances
CPT/HCPCS: 36415; 70450; 70496; 70498; 71045; 80053; 80307; 81001; 82550; 82553; 84484; 85014; 85018; 85025; 85049; 85610; 85670; 85730; 93005; 93010; 93971; 96365; 99285; J0692; J1644; J7030; Q9967; 80320; G0480

== ENCOUNTER 2019-08-19 11:27 | Inpatient (IN) | payer MEDICAID ==
--- NOTE | 2019-08-19 11:54 | Emergency Department Report ---
Chief Complaint: Extremity Problem,Nontraumatic Stated Complaint: BLOOD CLOT LEG - HPI History of Present Illness: Holly presents with left arm weakness and generalized malaise. Hx of DVT ?lung mass ?CVA "I need to be admitted I left AMA. I am very sick." MSE screening note: Focused history and physical exam performed. Due to findings the following was ordered: ED Disposition for MSE Condition: Stable
--- NOTE | 2019-08-19 12:54 | XRay Report ---
CHEST 2 VIEWS INDICATION / CLINICAL INFORMATION: Lung masses. COMPARISON: Chest radiograph 08/14/2019. FINDINGS: SUPPORT DEVICES: None. HEART / MEDIASTINUM: No significant abnormality. LUNGS / PLEURA: Multiple pulmonary masses are again noted bilaterally. These appears slightly increas ed in size from prior exam. These include a 4.6 cm cavitary lesion in the left upper lobe with fluid level noted. A 2.9 cm lesion overlying the right lower lobe appears slightly increased from prior chayo surement of 2 cm. No definite pleural effusion. No pneumothorax. ADDITIONAL FINDINGS: No significant additional findings. IMPRESSION: Multiple pulmonary masses are again noted bilaterally, these appear slightly increased in size from p rior exam. The increase in size suggests these may represent areas of atypical infection. Presence of pulmonary metastases cannot be excluded. Recommend clinical [facility]. Signer Name: Dixon Macario MD Signed: 08/19/2019 12:49 PM Workstation Name: [id number]
[2019-08-19 13:02] LABS: Basophils % (Auto) 0.4 % (0.0-1.8); Eosinophils % (Auto) 0.2 % (0.0-4.3); Hematocrit 29.4 % (30.3-42.9); Hemoglobin 9.7 gm/dl (10.1-14.3); Lymphocytes # (Auto) 0.9 K/mm3 (1.2-5.4); Lymphocytes % (Auto) 8.1 % (13.4-35.0); Mean Corpuscular HGB Conc 33 % (30-34); Mean Corpuscular Volume 89 fl (79-97); Monocytes # (Auto) 0.5 K/mm3 (0.0-0.8); Monocytes % (Auto) 4.8 % (0.0-7.3); Platelet Count 535 K/mm3 (140-440); Red Blood Count 3.32 M/mm3 (3.65-5.03); Red Cell Distribution Width 18.6 % (13.2-15.2)
--- NOTE | 2019-08-19 13:51 | Cat Scan Report ---
CT head without contrast INDICATION : arm weakness. TECHNIQUE: Axial imaging performed from the skull apex through the skull base without the use of con trast. All CT scans at this location are performed using CT dose reduction for ALARA by means of aut omated exposure control. COMPARISON: CT head from 08/14/2019 FINDINGS: Parenchyma: No acute intracranial hemorrhage. A few subtle hypodensities are again seen in the right cerebral hemisphere, slightly less conspicuous than the previous exam. Ventricles: Ventricles are normal in size and appear symmetric. Soft tissues: Soft tissues including the orbits appear normal. Bones: No acute osseous abnormality. Sinuses: Sinuses and mastoid air cells are clear. IMPRESSION: No significant change from the exam approximately 5 days ago scattered small hypodensitie s in the right cerebral hemisphere. Concern was previously raised for possible small emboli. No new a bnormality identified. Signer Name: Hakeem Boggs MD Signed: 08/19/2019 1:47 PM Workstation Name: [id number]
[2019-08-19 14:20] LABS: Alanine Aminotransferase 8 units/L (7-56); Albumin 3.4 g/dL (3.9-5); BUN/Creatinine Ratio 4; Blood Urea Nitrogen 3 mg/dL (7-17); Calcium 9.4 mg/dL (8.4-10.2); Hemolysis Index 4
--- NOTE | 2019-08-19 20:56 | Cat Scan Report ---
CT angio chest INDICATION / CLINICAL INFORMATION: sob/dvt/cp. TECHNIQUE: Axial CT images were obtained after injection of Omnipaque 350, 80 cc IV contrast using CTA protocol. 3 plane MIP / 3D reconstructions were produced. All CT scans at this location are performed using CT dose reduction for ALARA by means of automated exposure control. COMPARISON: Chest x-ray earlier the same day. FINDINGS: Bilateral lung masses several which are cavitary. The largest within the inferior aspect of the left upper lobe (series 2, image 49) measures 3.2 cm. Negative for pleural fluid or dense infiltrate. Evaluation the mediastinum demonstrates no mass or adenopathy. Negative for aneurysm, dissection or p ulmonary embolus. Imaging of the upper abdomen a partially imaged central left renal tumor. IMPRESSION: 1. Suspect central left renal tumor with cavitary metastases. Follow-up multiphase CT of the kidneys is recommended. 2. Negative for pulmonary embolus or significant pneumonia. Signer Name: Arik Healy MD Signed: 08/19/2019 8:52 PM Workstation Name: [id number]
--- NOTE | 2019-08-19 22:37 | Emergency Department Report ---
ED General Adult HPI - General Chief complaint: Extremity Problem,Nontraumatic Stated complaint: BLOOD CLOT LEG Time Seen by Provider: 08/19/19 16:30 Source: patient Mode of arrival: Wheelchair Limitations: No Limitations - History of Present Illness Initial comments: Patient presents to the emergency department with a chief complaint of left leg pain and left on weakness that started approximately 8 days ago. Patient states she was here on the of this month and was diagnosed with the DVT of the left lower leg and some type of stroke. Patient left AMA because she now was standing hospital at that time. Patient states she was also diagnosed with a DVT and just started Oquist 3-4 days ago. Patient states she is unable to walk due to the pain in her left leg. Patient is also concerned because her left arm has become weaker and she is experiencing less control of her movements with the left arm. Patient also complains of some shortness of breath. -: Gradual, days(s) (8 days) Location: lower extremity Severity scale (0 -10): 8 Quality: stabbing, aching Consistency: constant Improves with: none Worsens with: none Associated Symptoms: denies other symptoms Treatments Prior to Arrival: none - Related Data Home Medications Medication Instructions Recorded Confirmed Last Taken OLANZapine [Zyprexa] 20 mg PO QHS 08/19/19 08/19/19 Unknown OXcarbazepine [Trileptal] 600 mg PO BID 08/19/19 08/19/19 Unknown clonazePAM [KlonoPIN] 2 mg PO BID 08/19/19 08/19/19 Unknown risperiDONE [RisperDAL] 30 mg PO BID 08/19/19 08/19/19 Unknown Allergies Allergy/AdvReac Type Severity Reaction Status Date / Time divalproex sodium Allergy Unknown Verified 02/23/17 15:13 [From Depakote] risperidone [From Risperdal] Allergy Unknown Verified 02/23/17 15:13 ED Review of Systems ROS: Stated complaint: BLOOD CLOT LEG Other details as noted in HPI Comment: All other systems reviewed and negative Constitutional: denies: chills, fever Eyes: denies: eye pain, eye discharge, vision change ENT: denies: ear pain, throat pain Respiratory: denies: cough, shortness of breath, wheezing Cardiovascular: denies: chest pain, palpitations Endocrine: no symptoms reported Gastrointestinal: denies: abdominal pain, nausea, diarrhea Genitourinary: denies: urgency, dysuria, discharge Musculoskeletal: denies: back pain, joint swelling, arthralgia Skin: denies: rash, lesions Neurological: denies: headache, weakness, paresthesias Psychiatric: denies: anxiety, depression Hematological/Lymphatic: denies: easy bleeding, easy bruising ED Past Medical Hx - Past Medical History Previous Medical History?: Yes Hx Psychiatric Treatment: Yes (Schizoaffective disorder, PTSD, Anxiety) Hx HIV: Yes - Surgical History Past Surgical History?: Yes Additional Surgical History: Oral - Social History Smoking Status: Current Every Day Smoker Substance Use Type: None - Medications Home Medications: Home Medications Medication Instructions Recorded Confirmed Last Taken Type OLANZapine [Zyprexa] 20 mg PO QHS 08/19/19 08/19/19 Unknown History OXcarbazepine [Trileptal] 600 mg PO BID 08/19/19 08/19/19 Unknown History clonazePAM [KlonoPIN] 2 mg PO BID 08/19/19 08/19/19 Unknown History risperiDONE [RisperDAL] 30 mg PO BID 08/19/19 08/19/19 Unknown History ED Physical Exam - General Limitations: No Limitations General appearance: alert, in no apparent distress - Head Head exam: Present: atraumatic, normocephalic - Eye Eye exam: Present: normal appearance, PERRL, EOMI - ENT ENT exam: Present: mucous membranes moist - Neck Neck exam: Present: normal inspection - Respiratory Respiratory exam: Present: normal lung sounds bilaterally. Absent: respiratory distress - Cardiovascular Cardiovascular Exam: Present: normal rhythm, tachycardia. Absent: systolic murmur, diastolic murmur, rubs, gallop - GI/Abdominal GI/Abdominal exam: Present: soft, normal bowel sounds. Absent: distended, tenderness - Extremities Exam Extremities exam: Present: normal inspection - Back Exam Back exam: Present: normal inspection - Neurological Exam Neurological exam: Present: alert, oriented X3, other (patient has 2 out of 5 strength of the left upper extremity) - Psychiatric Psychiatric exam: Present: normal affect, normal mood - Skin Skin exam: Present: warm, dry, intact, normal color. Absent: rash ED Course Vital Signs 08/19/19 08/19/19 08/19/19 11:52 16:03 16:12 Temperature 97.9 F Pulse Rate 109 H 120 H 118 H Respiratory 18 26 H Rate Blood Pressure 110/66 Blood Pressure 109/81 [Right] O2 Sat by Pulse 98 99 Oximetry 08/19/19 08/19/19 08/19/19 16:15 16:30 16:46 Temperature Pulse Rate 111 H 119 H 120 H Respiratory 27 H 31 H 28 H Rate Blood Pressure 82/30 82/30 Blood Pressure [Right] O2 Sat by Pulse 98 Oximetry 08/19/19 08/19/19 08/19/19 17:00 17:22 17:30 Temperature Pulse Rate 117 H 131 H 115 H Respiratory 28 H 26 H Rate Blood Pressure 121/77 120/74 120/74 Blood Pressure [Right] O2 Sat by Pulse 98 Oximetry 08/19/19 08/19/19 08/19/19 17:45 18:00 18:16 Temperature Pulse Rate 115 H 113 H 110 H Respiratory 32 H 24 31 H Rate Blood Pressure 115/87 115/87 121/77 Blood Pressure [Right] O2 Sat by Pulse 97 97 Oximetry 08/19/19 08/19/19 08/19/19 19:35 19:46 20:00 Temperature 98.9 F Pulse Rate 113 H 111 H 110 H Respiratory 26 H 29 H 25 H Rate Blood Pressure 117/81 102/76 Blood Pressure 115/70 [Right] O2 Sat by Pulse 94 96 Oximetry 08/19/19 08/19/19 08/19/19 21:00 21:15 21:30 Temperature Pulse Rate 109 H 109 H 109 H Respiratory 18 27 H 30 H Rate Blood Pressure 117/70 110/76 117/81 Blood Pressure [Right] O2 Sat by Pulse Oximetry 08/19/19 08/19/19 22:00 22:30 Temperature Pulse Rate 114 H 111 H Respiratory 30 H 27 H Rate Blood Pressure 119/76 109/64 Blood Pressure [Right] O2 Sat by Pulse Oximetry ED Medical Decision Making - Lab Data Result diagrams: 08/19/19 12:44 08/19/19 12:44 Lab Results 08/19/19 08/19/19 Range/Units 12:44 12:44 WBC 10.8 (4.5-11.0) K/mm3 RBC 3.32 L (3.65-5.03) M/mm3 Hgb 9.7 L (10.1-14.3) gm/dl Hct 29.4 L (30.3-42.9) % MCV 89 (79-97) fl MCH 29 (28-32) pg MCHC 33 (30-34) % RDW 18.6 H (13.2-15.2) % Plt Count 535 H (140-440) K/mm3 Lymph % (Auto) 8.1 L (13.4-35.0) % [place] % (Auto) 4.8 (0.0-7.3) % Eos % (Auto) 0.2 (0.0-4.3) % Baso % (Auto) 0.4 (0.0-1.8) % Lymph # 0.9 L (1.2-5.4) K/mm3 [place] # 0.5 (0.0-0.8) K/mm3 Eos # 0.0 (0.0-0.4) K/mm3 Baso # 0.0 (0.0-0.1) K/mm3 Seg Neutrophils % 86.5 H (40.0-70.0) % Seg Neutrophils # 9.3 H (1.8-7.7) K/mm3 Sodium 136 L D (137-145) mmol/L Potassium 3.5 L (3.6-5.0) mmol/L Chloride 98.9 (98-107) mmol/L Carbon Dioxide 22 (22-30) mmol/L Anion Gap 19 mmol/L BUN 3 L (7-17) mg/dL Creatinine 0.7 (0.7-1.2) mg/dL Estimated GFR > 60 ml/min BUN/Creatinine Ratio 4 % Glucose 79 (65-100) mg/dL Calcium 9.4 (8.4-10.2) mg/dL Total Bilirubin 0.20 (0.1-1.2) mg/dL AST 18 (5-40) units/L ALT 8 (7-56) units/L Alkaline Phosphatase 167 H (35-129) units/L Total Protein 8.8 H (6.3-8.2) g/dL Albumin 3.4 L (3.9-5) g/dL Albumin/Globulin Ratio 0.6 % - Medical Decision Making The patient's CT from a prior visit shows embolic phenomenon of the brain and a lesion of the left carotid artery is bifurcation CT of the chest today does not show pulmonary emboli but does show metastatic renal carcinoma CT of the chest was done for evaluation of a pulmonary emboli due to the patient's tachycardia shortness of breath Patient is acutely ill and is stable for outpatient treatment especially with occlusive clot in the left lower extremity and emboli to the brain and a bifurcation a right carotid artery Spoke to fast her surgeon Dr. Lovelace will see the patient consultation stated patient be started on therapeutic Lovenox Telling neurology consultation will be done Critical Care Time: Yes Critical care time in (mins) excluding proc time.: 45 Critical care attestation.: If time is entered above; I have spent that time in minutes in the direct care of this critically ill patient, excluding procedure time. ED Disposition Clinical Impression: DVT (deep venous thrombosis), Brain embolism and thrombosis, Thrombosis of internal carotid Disposition: DC-09 OP ADMIT IP TO THIS HOSP Is pt being admited?: Yes Does the pt Need Aspirin: No Condition: Fair Referrals: PRIMARY CARE, [Primary Care Provider] - 3-5 Days
[2019-08-19] MEDS ORDERED: SODIUM CHLORIDE 0.9% 1000 ML 1,000 ML IV ONE (23:14)
[2019-08-19] MEDS ORDERED: PIPERACIL/TAZOBACTA 4.5/NS 100 4.5 GM/100 ML VIAL IV ONE (23:16)
[2019-08-19] MEDS ORDERED: VANCOMYCIN 1,000 MG in SODIUM CHLORIDE 0.9% 500 ML 500 ML IV ONE (23:16)
[2019-08-19] MEDS ORDERED: VANCOMYCIN/NS 1 GM/250 ML 1 GM/250 ML BAG IV ONE (23:45)
--- NOTE | 2019-08-19 23:51 | Event Note ---
Date: 08/19/19 By report the patient presented with complaints of left leg pain and swelling with left arm weakness, that has been present for 8 days. She presented to [facility] ER on 08/14/2019 and had a partial workup however she left AMA at that time. During that presentation she had similar complaints and had a CTA of her neck that revealed thrombus in the right common artery and extending into the internal carotid artery as well as a left lower extremity venous duplex revealing an extensive DVT extending from the popliteal vein to the external iliac vein. Her CTA of her chest reveal a mass is her left and right lung as well as possible metastatic lesions to her kidneys. I suspect she is hypercoagulable from malignancy, which lead to her DVT. She may also have a PFO that explains the DVT and the Carotid emboli. Given the time course of her neurologic symptoms I would not recommend thrombolysis or open embolectomy at this time as it would like lead to hemorrhagic conversion or additional emboli to the brain. Would recommend Neurology consult for further input. Recommend Cardiology consult for ECHO to evaluate for PFO. Recommend therapeutic Lovenox for anticoagulation given the possible malignancy. May require IVC filter to prevent further arterial emboli. Recommend repeating the CTA of the neck to reevaluate extension of the thrombus.
--- NOTE | 2019-08-20 00:16 | Consultation ---
History of Present Illness Consult date: 08/20/19 Medications and Allergies Allergies Allergy/AdvReac Type Severity Reaction Status Date / Time divalproex sodium Allergy Unknown Verified 02/23/17 15:13 [From Depakote] risperidone [From Risperdal] Allergy Unknown Verified 02/23/17 15:13 Home Medications Medication Instructions Recorded Confirmed Last Taken Type OLANZapine [Zyprexa] 20 mg PO QHS 08/19/19 08/19/19 Unknown History OXcarbazepine [Trileptal] 600 mg PO BID 08/19/19 08/19/19 Unknown History clonazePAM [KlonoPIN] 2 mg PO BID 08/19/19 08/19/19 Unknown History risperiDONE [RisperDAL] 30 mg PO BID 08/19/19 08/19/19 Unknown History Active Meds: Active Medications Vancomycin HCl (Vancomycin/Ns 1 Gm/250 Ml) 1 gm in 250 mls @ 250 mls/hr IV ONCE ONE Stop: 08/20/19 00:44 Physical Examination - Vital Signs Vital Signs: Vital Signs Temp Pulse Resp BP Pulse Ox 97.9 F 109 H 18 110/66 98 08/19/19 11:52 08/19/19 11:52 08/19/19 11:52 08/19/19 11:52 08/19/19 11:52 Results - Laboratory Findings CBC and BMP: 08/19/19 12:44 08/19/19 12:44 Abnormal Lab Findings: Abnormal Labs 08/19/19 08/19/19 12:44 12:44 RBC 3.32 L Hgb 9.7 L Hct 29.4 L RDW 18.6 H Plt Count 535 H Lymph % (Auto) 8.1 L Lymph # 0.9 L Seg Neutrophils % 86.5 H Seg Neutrophils # 9.3 H Sodium 136 L D Potassium 3.5 L BUN 3 L Alkaline Phosphatase 167 H Total Protein 8.8 H Albumin 3.4 L Assessment and Plan [facility] Date of Service 08/20/2019 Impression: 1- right hemispheric stroke 2- carotid mural thrombus 3- left leg DVT 4- metastatic renal carcinoma Recommendations: 1- brain MRI with and without contrast 2- regarding anticoagulation either heparin or lovenox can be used as long as patient is adequately anticoagulated. 3- If any abrupt change in neurological examination please obtain STAT head CT. 4- Physical Therapy/Occupational Therapy [facility] Neurologist will follow up with results. Please contact [facility] Navigator to reach me if further quest ions/concerns arise. Reason for Neurology Consult: - History of Present Illness: - Patient is a(n) 34 yo F with h/o metastatic renal carcinoma Has had left arm weakness x 8 days, DVT, right carotid thrombus. Stroke visible on HCT. She first came in on 08/14 but left AMA Neurology consulted for choice of anticoagulation Diagnostic Testing: - Head CT right hemispheric stroke Examination: Mental Status: Awake, alert, oriented Speech: fluent Cranial Nerves: Extraocular movements: Intact in all cardinal gaze Ptosis: Absent Motor Exam: Left sided weakness Edema left leg Medical Decision Making: - Extensive number of diagnosis or management options are considered above. - Extensive amount of complex data reviewed. - High risk of complication and/or morbidity or mortality are associated with differential diagnostic considerations above. - There may be uncertain outcome and increased probability of prolonged functional impairment or high probability of severe prolonged functional impairment associated with some of these differential diagnoses. Medical Data Reviewed: 1.Data reviewed include clinical labs, radiology,Medical Tests; 2.Tests results discussed w/performing or interpreting physician; 3.Obtaining/reviewing old medical records; 4.Obtaining case history from another source; 5.Independent review of image, tracing or specimen. When possible Patient/family were informed the Neurology Consult would happen via TeleHealth consult by way of interactive audio and video telecommunications and consented to receiving care in this manner.
[2019-08-20] MEDS ORDERED: ONDANSETRON 4 MG/2 ML INJ IV PRN (00:51)
[2019-08-20] MEDS ORDERED: ACETAMINOPHEN 325 MG TAB PO PRN (00:51)
[2019-08-20] MEDS ORDERED: MORPHINE 2 MG/1 ML INJ ONE ×3 (00:53→09:44)
[2019-08-20] MEDS: MORPHINE 2 MG/1 ML INJ IV PRN ×4 (00:55→18:26)
--- NOTE | 2019-08-20 00:55 | History and Physical Report ---
History of Present Illness History of present illness: 34-year-old woman with a history of schizoaffective disorder, PTSD, anxiety, HIV comes emergency room with complaints of worsening leg pain and swelling. Patient was seen here on 12 August for the same complaint, she was diagnosed with extensive DVT of the left leg and emboli to the brain. Patient stated that she felt overwhelmed and scared and she left the hospital AGAINST MEDICAL ADV ICE. She stated that 5 months ago she was diagnosed with a DVT, she took Eliquis for 3 months, her DVT cleared and Eliquis was discontinued. Over the last 7 days she developed left arm weakness, also complaining of lower abdominal pain for 1 year. She states she knew something was wrong but she did not see a doctor. She describes her pain as sharp, intermittent every 5 minutes, no radiation, intensity 5/10. Admits to weight loss of 70 pounds over the last 6 months. Patient stated that she started on Eliquis 4 days ago Review of systems Constitutional: no weight loss, chills, fever Ears, eyes, nose, mouth and throat: no nasal congestion, no nasal discharge, no sinus pressure, no vision change, no red eye. Neck: No neck pain or rigidity. Cardiovascular: no palpitations, chest pain Respiratory: no cough, shortness of breath Gastrointestinal: no hematochezia, abdominal pain Genitourinary : no frequency , no hematuria Musculoskeletal: no joint swelling or muscle ache Integumentary: no rash, no pruritis Neurological: no parathesias, no focal weakness Endocrine: no cold or heat intolerance, no polyuria or polydipsia Hematologic/Lymphatic: no easy bruising, no easy bleeding, no gland swelling Allergic/Immunologic: no urticaria, no angioedema. PAST MEDICAL HISTORY: Schizoaffective disorder, PTSD, anxiety HIV PAST SURGICAL HISTORY: Oral surgery SOCIAL HISTORY: denies alcohol, drugs , smokes half pack a day FAMILY HISTORY:Hypertension G Medications and Allergies Allergies Allergy/AdvReac Type Severity Reaction Status Date / Time divalproex sodium Allergy Unknown Verified 02/23/17 15:13 [From Depakote] risperidone [From Risperdal] Allergy Unknown Verified 02/23/17 15:13 Home Medications Medication Instructions Recorded Confirmed Last Taken Type OLANZapine [Zyprexa] 20 mg PO QHS 08/19/19 08/19/19 Unknown History OXcarbazepine [Trileptal] 600 mg PO BID 08/19/19 08/19/19 Unknown History clonazePAM [KlonoPIN] 2 mg PO BID 08/19/19 08/19/19 Unknown History risperiDONE [RisperDAL] 30 mg PO BID 08/19/19 08/19/19 Unknown History Exam - Physical Exam Narrative exam: Gen. appearance: Patient lying in bed, no apparent distress HEENT: Normocephalic, atraumatic, pupils equally round and reactive to light, ey es are , extraocular movement intact, and no sclericterus,. No JVD or thyromegaly or nodule,neck supple, no carotid bruit ,mucous membranes moist, no exudate or erythema Heart: S1, S2, regular rate and rhythm Lungs: Clear bilaterally, breathing comfortable Abdomen: Positive bowel sounds, non-tender, nondistended, no organomegaly Extremity: Left leg almost twice the size of the right, tender to touch no edema cyanosis, clubbing Skin: no rash, dry, warm Neuro: Cranial nerves 2-12 intact, motor - RUE 2/5 and sensory intact - Constitutional Vitals: Temp Pulse Resp BP Pulse Ox 98.9 F 111 H 27 H 109/64 96 08/19/19 19:35 08/19/19 22:30 08/19/19 22:30 08/19/19 22:30 08/19/19 20:00 Results - Labs CBC & Chem 7: 08/20/19 02:28 08/20/19 02:28 Labs: Abnormal lab results 08/19/19 08/19/19 Range/Units 12:44 12:44 RBC 3.32 L (3.65-5.03) M/mm3 Hgb 9.7 L (10.1-14.3) gm/dl Hct 29.4 L (30.3-42.9) % RDW 18.6 H (13.2-15.2) % Plt Count 535 H (140-440) K/mm3 Lymph % (Auto) 8.1 L (13.4-35.0) % Lymph # 0.9 L (1.2-5.4) K/mm3 Seg Neutrophils % 86.5 H (40.0-70.0) % Seg Neutrophils # 9.3 H (1.8-7.7) K/mm3 Sodium 136 L D (137-145) mmol/L Potassium 3.5 L (3.6-5.0) mmol/L BUN 3 L (7-17) mg/dL Alkaline Phosphatase 167 H (35-129) units/L Total Protein 8.8 H (6.3-8.2) g/dL Albumin 3.4 L (3.9-5) g/dL - Imaging and Cardiology Chest x-ray: report reviewed CT scan - chest: report reviewed CT Scan - head: report reviewed Assessment and Plan CTA head and neck reviewed Assessment Renal cell cancer with cavitary mets to the lung Emboli in the brain Mural thrombus in the internal carotid artery bifurcation Extensive DVT of the lower left lower extremity I have discussed the case with neurology, critical care, cardiology, oncology ER physician has discussed the case with Dr. Lovelace extensively Consensus is to place the patient on heparin drip Consult vascular, critical care, cardiology, neurology, urology, oncology Obtain echo, check serial hemoglobin Start IV fluid, IV morphine Patient is critically ill DVT prophylaxis
[2019-08-20] MEDS ORDERED: HEPARIN/ 0.45% NACL DRIP 25,000 UNIT/500 ML BAG IV SCH ×2 (02:00→16:00)
[2019-08-20] MEDS ORDERED: SODIUM CHLORIDE 0.9% 1000 ML 1,000 ML ONE (02:38)
[2019-08-20] MEDS ORDERED: HEPARIN/ 0.45% NACL DRIP 25,000 UNIT/500 ML BAG ONE (02:38)
[2019-08-20 02:41] LABS: Basophils % (Auto) 0.3 % (0.0-1.8); Eosinophils % (Auto) 0.3 % (0.0-4.3); Hematocrit 27.2 % (30.3-42.9); Hemoglobin 9.2 gm/dl (10.1-14.3); Lymphocytes # (Auto) 0.7 K/mm3 (1.2-5.4); Lymphocytes % (Auto) 7.7 % (13.4-35.0); Mean Corpuscular HGB Conc 34 % (30-34); Mean Corpuscular Volume 95 fl (79-97); Monocytes # (Auto) 0.6 K/mm3 (0.0-0.8); Monocytes % (Auto) 6.5 % (0.0-7.3); Platelet Count 548 K/mm3 (140-440); Red Blood Count 2.87 M/mm3 (3.65-5.03); Red Cell Distribution Width 18.3 % (13.2-15.2)
[2019-08-20 02:53] LABS: INR 1.17 (0.87-1.13)
[2019-08-20 02:55] LABS: Partial Thromboplastin Time 43.3 Sec. (24.2-36.6)
[2019-08-20 02:57] LABS: BUN/Creatinine Ratio 4; Blood Urea Nitrogen 3 mg/dL (7-17); Hemolysis Index 0
[2019-08-20] MEDS: SODIUM CHLORIDE 0.9% 1000 ML 1,000 ML IV SCH ×2 (02:59→14:11)
--- NOTE | 2019-08-20 08:38 | Event Note ---
Date: 08/20/19 [id number] renal mass may have a role in DVT ? 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
--- NOTE | 2019-08-20 09:14 | Consultation ---
History of Present Illness Consult date: 08/20/19 Requesting physician: ROXANNE SHEPARD Consult reason: other (DVT, CVA, ? cardiac shunt) History of present illness: The patient is a 35 YO female with a past medical history of HIV, LLE DVT diagnosed 4 months ago (took Eliquis for 3 months and was told DVT had resolved), tobacco use, chronic bronchitis. She is previously unknown to our practice. She presented to ED with c/o LLE pain and swelling and left-sided weakness for approx 1 week prior to arrival. Of note, pt presented to [facility] ER on 08/14/2019 and had a partial workup however she left AMA at that time. During that presentation she had similar complaints and had a CTA of her neck that revealed thrombus in the right common artery and extending into the internal carotid artery as well as a left lower extremity venous duplex revealing an extensive DVT extending from the popliteal vein to the external iliac vein. Chest CTA yesterday was negative for PE, revealed bilateral lung masses and suspected left renal tumor with cavitary metastases. Head CT shows scattered hypodensities in the right cerebral hemisphere - embolic CVA? Cardiology has been consulted in setting of suspected embolic CVA and to evaluate for PFO. Pt denies any known prior cardiac issues or cardiac w/u. She denies any occurrence of chest pain, palpitations, SOB, n/v, diaphoresis, dizziness or syncope. Pt admits to unintentional weight loss of 70 pounds over the last 6 months. Past History Past Medical History: other (as per HPI) Medications and Allergies Allergies Allergy/AdvReac Type Severity Reaction Status Date / Time divalproex sodium Allergy Unknown Verified 02/23/17 15:13 [From Depakote] risperidone [From Risperdal] Allergy Unknown Verified 02/23/17 15:13 Home Medications Medication Instructions Recorded Confirmed Last Taken Type OLANZapine [Zyprexa] 20 mg PO QHS 08/19/19 08/19/19 Unknown History OXcarbazepine [Trileptal] 600 mg PO BID 08/19/19 08/19/19 Unknown History clonazePAM [KlonoPIN] 2 mg PO BID 08/19/19 08/19/19 Unknown History risperiDONE [RisperDAL] 30 mg PO BID 08/19/19 08/19/19 Unknown History Active Meds: Active Medications Acetaminophen (Tylenol) 650 mg PO Q4H PRN PRN Reason: Pain MILD(1-3)/Fever >100.5/SNYDER Sodium Chloride (Nacl 0.9% 1000 Ml) 1,000 mls @ 125 mls/hr IV DIRECT KVNG Last Admin: 08/20/19 02:59 Dose: 125 mls/hr Documented by: Morphine Sulfate (Morphine) 2 mg IV Q4H PRN PRN Reason: Pain, Moderate (4-6) Last Admin: 08/20/19 04:30 Dose: 2 mg Documented by: Ondansetron HCl (Zofran) 4 mg IV Q8H PRN PRN Reason: Nausea And Vomiting Sodium Chloride (Sodium Chloride Flush Syringe 10 Ml) 10 ml IV BID KVNG Sodium Chloride (Sodium Chloride Flush Syringe 10 Ml) 10 ml IV PRN PRN PRN Reason: LINE FLUSH Review of Systems Constitutional: weight loss, weakness (left-sided), no weight gain, no fever, no chills, no sweats Ears, nose, mouth and throat: no ear pain, no nose pain, no sinus pressure, no sinus pain Cardiovascular: edema (LLE), leg edema (LLE), no chest pain, no orthopnea, no palpitations, no rapid/irregular heart beat, no syncope, no lightheadedness, no shortness of breath, no dyspnea on exertion, no high blood pressure Respiratory: no cough, no shortness of breath, no dyspnea on exertion, no congestion, no wheezing, no pain on inspiration Gastrointestinal: no abdominal pain, no nausea, no vomiting, no diarrhea, no constipation, no change in bowel habits Genitourinary Female: no pelvic pain, no flank pain, no dysuria, no urinary frequency, no urgency Musculoskeletal: no neck stiffness, no neck pain, no shooting arm pain, no arm numbness/tingling, no low back pain Integumentary: no rash, no pruritis, no sores, no wounds Neurological: weakness (left-sided), no head injury, no paralysis, no tingling, no seizures, no syncope Endocrine: no cold intolerance, no heat intolerance Hematologic/Lymphatic: no easy bruising, no easy bleeding Allergic/Immunologic: no urticaria Physical Examination Vital Signs Temp Pulse Resp BP Pulse Ox 97.9 F 109 H 18 110/66 98 08/19/19 11:52 08/19/19 11:52 08/19/19 11:52 08/19/19 11:52 08/19/19 11:52 General appearance: other (anxious) HEENT: Positive: PERRL Neck: Positive: neck supple, trachea midline Cardiac: Positive: Reg Rate and Rhythm, S1/S2 Lungs: Positive: Decreased Breath Sounds, Wheezes, Rhonchi Neuro: Positive: Grossly Intact Abdomen: Negative: Tender Skin: Positive: Other (LLE redness and pain). Negative: Rash Musculoskeletal: other (LLE pain) Extremities: Present: +2 Edema (LLE) Results 08/20/19 02:28 08/20/19 02:28 Cardiac Enzymes 08/19/19 Range/Units 12:44 AST 18 (5-40) units/L Coagulation 08/20/19 Range/Units 02:28 PT 15.1 H (12.2-14.9) Sec. INR 1.17 H (0.87-1.13) APTT 43.3 H (24.2-36.6) Sec. CBC 08/19/19 08/20/19 Range/Units 12:44 02:28 WBC 10.8 8.7 (4.5-11.0) K/mm3 RBC 3.32 L 2.87 L (3.65-5.03) M/mm3 Hgb 9.7 L 9.2 L (10.1-14.3) gm/dl Hct 29.4 L 27.2 L (30.3-42.9) % Plt Count 535 H 548 H (140-440) K/mm3 Lymph # 0.9 L 0.7 L (1.2-5.4) K/mm3 [place] # 0.5 0.6 (0.0-0.8) K/mm3 Eos # 0.0 0.0 (0.0-0.4) K/mm3 Baso # 0.0 0.0 (0.0-0.1) K/mm3 Comprehensive Metabolic Panel 08/19/19 08/20/19 Range/Units 12:44 02:28 Sodium 136 L D 136 L (137-145) mmol/L Potassium 3.5 L 4.5 D (3.6-5.0) mmol/L Chloride 98.9 100.1 (98-107) mmol/L Carbon Dioxide 22 22 (22-30) mmol/L BUN 3 L 3 L (7-17) mg/dL Creatinine 0.7 0.7 (0.7-1.2) mg/dL Glucose 79 90 (65-100) mg/dL Calcium 9.4 9.0 (8.4-10.2) mg/dL AST 18 (5-40) units/L ALT 8 (7-56) units/L Alkaline Phosphatase 167 H (35-129) units/L Total Protein 8.8 H (6.3-8.2) g/dL Albumin 3.4 L (3.9-5) g/dL - Imaging and Cardiology Echo: pending EKG: report reviewed, image reviewed EKG interpretations - Telemetry EKG Rhythm: Sinus Rhythm - EKG Sinus rhythms and dysrhythmias: sinus rhythm Assessment and Plan Acute CVA ? embolic Brain MRI pending. Neurology following. Per neurology, stroke symptoms started more than a week ago and if there is strong indication for anticoagulation (such as DVT and carotid mural thrombus) patient can be anticoagulated with either heparin or lovenox and should remain under close clinical monitoring. Obtain echo. Cont to observe for arrhythmias on telemetry. Renal cell cancer with cavitary mets to the lung Heme/oncology following. Zahraa heme/onc, pt was on heparin - held as tumor mets is a differential. Urology and pulmonary consulted. Mural thrombus in the internal carotid artery bifurcation Vascular team following - Per vascular, no recommendation for thrombolysis or open embolectomy at this time as it may lead to hemorrhagic conversion or additional emboli to the brain. Recommend therapeutic Lovenox for anticoagulation given the possible malignancy. May require IVC filter to prevent further arterial emboli. Recommend repeating the CTA of the neck to reevaluate extension of the thrombus. Extensive LLE DVT Vascular team following. Per vascular, Recommend therapeutic Lovenox for anticoagulation given the possible malignancy. May require IVC filter to prevent further arterial emboli. Anemia Monitor CBC. HIV Recommend ID consultation per primary. Chronic bronchitis Tobacco use Cessation encouraged. The patient has been seen in conjunction with Dr. Ferreira who agrees with the assessment and plan of care.
[2019-08-20 10:34] LABS: Iron 21 ug/dL (37-170); Total Iron Binding Capacity 146 mcg/dL (250-450)
--- NOTE | 2019-08-20 11:05 | Consultation ---
REFERRING PHYSICIAN: Dr. Donna Llanes. REASON FOR CONSULTATION: Leg DVT, renal mass, lung lesions, suspected met and question of brain met, brain emboli. HISTORY OF PRESENT ILLNESS: I saw the patient, a 34-year-old female in the ER. The patient has had a few admissions in the recent past to various hospitals. I discussed with nurse regarding this. The patient has leg swelling. On , DVT study had shown DVT. The patient also has history of HIV, schizoaffective disorder, history of posttraumatic stress disorder, anxiety. She came to the hospital because of leg pain and swelling. The patient had left against medical advice. As per the notes some 5 months ago, she was diagnosed with DVT for which she took Eliquis for a few months. DVT cleared and Eliquis was discontinued. However, the leg swelling recurred a few days ago. Over the last few days, she also had left arm weakness and abdominal pain and history of loss of weight. As per the notes, the patient was restarted on Eliquis. At this time, the patient is complaining of chills and feeling cold. She is not able to communicate well because of shivering. Most of the information comes from the medical record, nursing staff and the other physicians' notes. No fever. History of feeling cold and shivering present. No nasal discharge. No palpitations, no cough, no hemoptysis, no hematuria. PAST MEDICAL HISTORY: As above, HIV. PAST SURGICAL HISTORY: Oral surgery. SOCIAL HISTORY: History of smoking present. FAMILY HISTORY: Hypertension. ALLERGIES: DEPAKOTE, RISPERDAL. HOME MEDICATIONS: Include risperidone, Klonopin. PHYSICAL EXAMINATION: VITAL SIGNS: Temperature 98.9, pulse 113, respirations 26, and BP 115/70. HEENT: Pallor present, no icterus. Poor dentition. HEART: S1, S2. LUNGS: Clear to auscultation. ABDOMEN: Soft. EXTREMITIES: Left leg edema present. NEUROLOGIC: Alert, awake, answers simple questions. LABORATORY DATA: White cell 8, hemoglobin 9.2, MCV 95, platelets 548. PTT 43. INR 1.1. Potassium 4.5, creatinine 0.7, calcium 9, and total protein 8.8. RADIOLOGY: 1. CT chest shows bilateral lung masses which are cavitary. There is a partially imaged left renal tumor, no pulmonary embolism. 2. Head CT mentions concern was previously raised for possible small emboli, right cerebral hemisphere slightly less conspicuous than previous exam. ASSESSMENT AND PLAN: 1. Left leg deep venous thrombosis. The patient had similar DVT in the past. This may be secondary to the renal mass. The patient was on Eliquis and this was stopped and swelling re-appeared. Anticoagulation is an option; however, in view of renal mass and possible mets to the brain secondary to renal issues which is a differential, IR consultation for reevaluation for possible IVC filter. 2. Renal mass, mention of lung lesions, possible mets. This may be stage [address] abdomen is being done. 3. Mention of left arm weakness. CT mentions subtle hypodensities in the right cerebral hemisphere less conspicuous than previous. Neurology team will guide us. The question is if this is emboli because of a cardiac shunt from the DVT versus from the renal tumor. 4. Human immunodeficiency virus. 5. Anemia. 6. Thrombocytosis. Mention of right carotid thrombus. 7. Echo has been done. 8. This is a challenging case. There is a risk-benefit discussion. 9. One CT abdomen and pelvis and echo is done, we will have more clarity. MRI brain will help. Neurology input will be helpful. I am apprehensive that if this is tumor emboli. Anticoagulation may worsen. JOB# [id number] ARLEEN/EVONNE
--- NOTE | 2019-08-20 11:42 | Progress Note ---
Assessment and Plan Assessment and plan: 34-year-old female patient with a history of DVT of left AMA 4 days ago from ER was admitted through emergency room today with left leg DVT and thrombus involving the right internal and common carotid arteries. CTA of the chest as well as CTA of the head and neck and CT of the head which show areas of suspicion for metastatic disease to the brain as well as multiple metastatic foci in both lungs. MRI of the brain show both embolic and metastatic disease predominantly to the right hemisphere. She underwent a CTA of the abdomen and pelvis which demonstrates marked hydronephrosis on the left secondary to what appears to be cervical cancer with local extension.Patient also has lower abdom inal swelling as well as left arm weakness. Patient was started on heparin drip --Embolic CVA versus brain metastases Neurology consultation, neurochecks For the neuro workup . Cardiology consultation to rule out Cardioembolic causes of embolic CVA --Multiple pulmonary masses; probably metastatic lesion Areas of possible infection, empiric antibiotics, pulmonary consult --Mural thrombus in the internal carotid artery bifurcation --Extensive DVT of the lower left lower extremity Vascular and hematology evaluated the patient Initially Started on heparin drip, however hematology discontinued Due to risk of hemorrhagic conversion of embolic CVA/brain metastases Vascular evaluation noted and appreciated, considering IVC filter Placement --h/oCervical cancer with cavitary mets to the lung Hematology oncology following --Mild hyponatremia: IV fluids Closely monitor electrolytes --Hypokalemia corrected; Monitor electrolytes --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 Patient was admitted with a left lower extremity DVT, on heparin drip Patient complains of severe pain in the leg As well as generalized weakness Alert awake responding appropriately Vital signs noted Hospitalist Physical - Constitutional Vitals: Temp Pulse Resp BP Pulse Ox 98.9 F 118 H 20 116/74 96 08/19/19 19:35 08/20/19 09:45 08/20/19 10:14 08/20/19 09:45 08/19/19 20:00 General appearance: Present: mild distress, well-nourished, other (anxious) - EENT Eyes: Present: PERRL, EOM intact - Neck Neck: Present: supple, normal ROM - Respiratory Respiratory: bilateral: diminished, rhonchi, negative: rales, wheezing - Cardiovascular Rhythm: regular Heart Sounds: Present: S1 & S2 - Extremities Extremities: abnormal (left lower extremity swollen and tender cyanotic) - Abdominal General gastrointestinal: soft, non-tender, non-distended, normal bowel sounds - Integumentary Integumentary: Present: clear, warm - Psychiatric Psychiatric: appropriate mood/affect, other (anxious) - Neurologic Neurologic: moves all extremities Results - Labs CBC & Chem 7: 08/20/19 02:28 08/20/19 02:28 Labs: Laboratory Last Values WBC 8.7 K/mm3 (4.5-11.0) 08/20/19 02:28 RBC 2.87 M/mm3 (3.65-5.03) L 08/20/19 02:28 Hgb 9.2 gm/dl (10.1-14.3) L 08/20/19 02:28 Hct 27.2 % (30.3-42.9) L 08/20/19 02:28 MCV 95 fl (79-97) 08/20/19 02:28 MCH 32 pg (28-32) 08/20/19 02:28 MCHC 34 % (30-34) 08/20/19 02:28 RDW 18.3 % (13.2-15.2) H 08/20/19 02:28 Plt Count 548 K/mm3 (140-440) H 08/20/19 02:28 Lymph % (Auto) 7.7 % (13.4-35.0) L 08/20/19 02:28 [place] % (Auto) 6.5 % (0.0-7.3) 08/20/19 02:28 Eos % (Auto) 0.3 % (0.0-4.3) 08/20/19 02:28 Baso % (Auto) 0.3 % (0.0-1.8) 08/20/19 02:28 Lymph # 0.7 K/mm3 (1.2-5.4) L 08/20/19 02:28 [place] # 0.6 K/mm3 (0.0-0.8) 08/20/19 02:28 Eos # 0.0 K/mm3 (0.0-0.4) 08/20/19 02:28 Baso # 0.0 K/mm3 (0.0-0.1) 08/20/19 02:28 Seg Neutrophils % 85.2 % (40.0-70.0) H 08/20/19 02:28 Seg Neutrophils # 7.4 K/mm3 (1.8-7.7) 08/20/19 02:28 PT 15.1 Sec. (12.2-14.9) H 08/20/19 02:28 INR 1.17 (0.87-1.13) H 08/20/19 02:28 APTT 43.3 Sec. (24.2-36.6) H 08/20/19 02:28 Heparin Anti-Xa Level 0.43 U.I./ml (0.3-0.7) 08/20/19 09:48 Sodium 136 mmol/L (137-145) L 08/20/19 02:28 Potassium 4.5 mmol/L (3.6-5.0) D 08/20/19 02:28 Chloride 100.1 mmol/L (98-107) 08/20/19 02:28 Carbon Dioxide 22 mmol/L (22-30) 08/20/19 02:28 Anion Gap 18 mmol/L 08/20/19 02:28 BUN 3 mg/dL (7-17) L 08/20/19 02:28 Creatinine 0.7 mg/dL (0.7-1.2) 08/20/19 02:28 Estimated GFR > 60 ml/min 08/20/19 02:28 BUN/Creatinine Ratio 4 % 08/20/19 02:28 Glucose 90 mg/dL (65-100) 08/20/19 02:28 Lactic Acid 1.90 mmol/L (0.7-2.0) 08/19/19 23:54 Calcium 9.0 mg/dL (8.4-10.2) 08/20/19 02:28 Iron 21 ug/dL (37-170) L 08/20/19 09:48 TIBC 146 mcg/dL (250-450) L 08/20/19 09:48 Ferritin 112.4 ng/mL (13.0-400.0) 08/20/19 09:48 Total Bilirubin 0.20 mg/dL (0.1-1.2) 08/19/19 12:44 AST 18 units/L (5-40) 08/19/19 12:44 ALT 8 units/L (7-56) 08/19/19 12:44 Alkaline Phosphatase 167 units/L (35-129) H 08/19/19 12:44 Total Protein 8.8 g/dL (6.3-8.2) H 08/19/19 12:44 Albumin 3.4 g/dL (3.9-5) L 08/19/19 12:44 Albumin/Globulin Ratio 0.6 % 08/19/19 12:44 Vitamin B12 609.8 pg/mL (211-911) 08/20/19 09:48 Folate 2.00 ng/mL (7.3-26.0) L 08/20/19 09:48 Active Medications - Current Medications Current Medications: Generic Name Dose Route Start Last Admin Trade Name Freq PRN Reason Stop Dose Admin Acetaminophen 650 mg 08/20/19 00:51 Tylenol PO Q4H PRN Pain MILD(1-3)/Fever >100.5/SNYDER Sodium Chloride 1,000 mls @ 125 mls/hr 08/20/19 01:00 08/20/19 02:59 Nacl 0.9% 1000 Ml IV 125 mls/hr DIRECT KVNG Administration Morphine Sulfate 2 mg 08/20/19 00:51 08/20/19 09:44 Morphine IV 2 mg Q4H PRN Administration Pain, Moderate (4-6) Ondansetron HCl 4 mg 08/20/19 00:51 Zofran IV Q8H PRN Nausea And Vomiting Sodium Chloride 10 ml 08/20/19 10:00 Sodium Chloride Flush Syringe 10 Ml IV BID KVNG Sodium Chloride 10 ml 08/20/19 00:51 Sodium Chloride Flush Syringe 10 Ml IV PRN PRN LINE FLUSH
--- NOTE | 2019-08-20 12:20 | Cat Scan Report ---
CT ABDOMEN AND PELVIS WITH CONTRAST--multiphase abdomen HISTORY: left renal mass - arterial and delayed phases. COMPARISON: CTA chest from yesterday TECHNIQUE: CT images of the abdomen and pelvis were obtained following administration of intravenous contrast. All CT scans at this location are performed using CT dose reduction for ALARA by means of automated exposure control. CONTRAST: 100 ml of intravenous contrast administered. FINDINGS: Lungs/bones: There are again multiple cavitary lesions in the lung bases in this patient with consid erable respiratory motion artifact. Degenerative changes are present in the spine and pelvis with not sarah acute. Abdomen/pelvis: The reproductive organs appear abnormal. Specifically, there is a mass arising from the lower uterine segment cervix is quite lobulated with areas of central fluid attenuation which lik sydnie reflect necrosis. In total the largest portion of this mass in the axial plane measures 5.6 cm on image #148 of series #2. There is intramuscular extension into the left iliacus musculature with elizabeth tral necrosis with an overall size of roughly 5 cm on image #139. The distal left ureter is involved by this neoplastic process and obstructed with severe hydronephrosis. The left external iliac vein is also compressed and there is DVT formation in the distal left iliac vein and common femoral vein. Th ere is also pathologic retroperitoneal and iliac chain adenopathy with a left para-aortic lymph node measuring 1.1 cm in short axis on image #72 of series #2. Adenopathy is actually much more impressive extending along the left iliac chain to the left inguinal region where there is a left iliac lymph n ode measuring up to 2 cm in short axis on image #143. A trace amount of pelvic free fluid is noted. The liver, gallbladder, pancreas, adrenals, right kidney, and proximal GI tract appear unremarkable. There is borderline splenomegaly. Urinary bladder and colon show no acute abnormality. IMPRESSION: 1. Deep pelvic mass with direct metastatic spread to the left iliacus musculature and metastatic pa opathy as outlined above. These findings result in obstruction of the distal left ureter causing mo re hydronephrosis and also compression of the left external iliac vein causing DVT in the distal left iliac vein leading into the common femoral vein. Primary differential consideration in a woman of th is age would be metastatic cervical cancer. COMMUNICATION: Time of Communication (CART PUSHER/CDT): A message was left with Dr. Sandoval at 12:15 PM today Licensed Practitioner Receiving Report: Dr. Sandoval Signer Name: Haekem Boggs MD Signed: 08/20/2019 12:15 PM Workstation Name: [id number]
--- NOTE | 2019-08-20 12:36 | Magnetic Resonance Report ---
MRI BRAIN with and without IV contrast. INDICATION / CLINICAL INFORMATION: brain mets versus emboli. TECHNIQUE: Multiplanar, multisequence MR images of the brain were obtained. COMPARISON: No previous MRI exams available for comparison. FINDINGS: BRAIN / INTRACRANIAL CONTENTS: The motion degrades image quality. However, there are scattered hyperi ntense foci involving the right cerebrum, most notably along the right frontal and parietal cortical/ subcortical regions. Furthermore, there is a 2 cm focus along the posterior right occipital lobe. The re is corresponding patchy enhancement as well as subtle increased signal on the diffusion signal in the constellation of findings would appear most consistent with subacute ischemic changes. The patter n along the vascular distribution and unilaterality would be atypical for metastatic process. The ventricular system is appropriate in size and configuration. No extra-axial fluid collections are identified. CRANIOCERVICAL JUNCTION: No significant abnormality. VASCULAR FLOW-VOIDS: The vertebral basilar system and distal internal carotid arteries grossly demons trate appropriate signal voids. ORBITS: No significant abnormality of visualized orbits. SINUSES / MASTOIDS: No significant abnormality of the visualized paranasal sinuses or mastoid air rebekah ls. ADDITIONAL FINDINGS: None. IMPRESSION: 1. The constellation of findings are most consistent with patchy areas of subacute infarction involvi ng the right cerebral hemisphere as detailed above. Signer Name: Dixon Valadez MD Signed: 08/20/2019 12:32 PM Workstation Name: [id number]
--- NOTE | 2019-08-20 13:31 | Consultation ---
History of Present Illness - Reason for Consult Consult date: 08/20/19 patient with both arterial and venous thrombus - History of Present Illness Patient with a history of DVT of left AMA 4 days ago prior to a complete workup returns with left leg DVT and thrombus involving the right internal and common carotid arteries. She underwent a CTA of the chest as well as CT A of the head and neck and CT of the head which demonstrated areas of suspicion for metastatic disease to the brain as well as multiple metastatic foci in both lungs. An MRI of the brain was ordered which demonstrates what appears to be both embolic and metastatic disease predominantly to the right hemisphere. She underwent a CTA of the abdomen and pelvis which demonstrates marked hydronephrosis on the left secondary to what appears to be cervical cancer with local extension. Additionally, the patient has left lower stomach swelling as well as left arm weakness. Past History Past Medical History: other (as per HPI) Medications and Allergies Allergies Allergy/AdvReac Type Severity Reaction Status Date / Time divalproex sodium Allergy Unknown Verified 02/23/17 15:13 [From Depakote] risperidone [From Risperdal] Allergy Unknown Verified 02/23/17 15:13 Home Medications Medication Instructions Recorded Confirmed Last Taken Type OLANZapine [Zyprexa] 20 mg PO QHS 08/19/19 08/19/19 Unknown History OXcarbazepine [Trileptal] 600 mg PO BID 08/19/19 08/19/19 Unknown History clonazePAM [KlonoPIN] 2 mg PO BID 08/19/19 08/19/19 Unknown History risperiDONE [RisperDAL] 30 mg PO BID 08/19/19 08/19/19 Unknown History Active Meds: Active Medications Acetaminophen (Tylenol) 650 mg PO Q4H PRN PRN Reason: Pain MILD(1-3)/Fever >100.5/SNYDER Clonazepam (Klonopin) 2 mg PO BID K[facility] Sodium Chloride (Nacl 0.9% 1000 Ml) 1,000 mls @ 125 mls/hr IV DIRECT [facility] Last Admin: 08/20/19 02:59 Dose: 125 mls/hr Documented by: Folic Acid 1 mg/ Sodium (Chloride) 50.2 mls @ 200.8 mls/hr IV QDAY [facility] Morphine Sulfate (Morphine) 2 mg IV Q4H PRN PRN Reason: Pain, Moderate (4-6) Last Admin: 08/20/19 09:44 Dose: 2 mg Documented by: Olanzapine (Zyprexa) 20 mg PO QHS [facility] Ondansetron HCl (Zofran) 4 mg IV Q8H PRN PRN Reason: Nausea And Vomiting Oxcarbazepine (Trileptal) 600 mg PO BID K[facility] Sodium Chloride (Sodium Chloride Flush Syringe 10 Ml) 10 ml IV BID KVNG Sodium Chloride (Sodium Chloride Flush Syringe 10 Ml) 10 ml IV PRN PRN PRN Reason: LINE FLUSH Review of Systems All systems: negative Exam - Constitutional Vitals: Temp Pulse Resp BP Pulse Ox 98.9 F 118 H 20 116/74 96 08/19/19 19:35 08/20/19 09:45 08/20/19 10:14 08/20/19 09:45 08/19/19 20:00 General appearance: Present: no acute distress - EENT Eyes: Present: EOM intact ENT: hearing intact - Neck Neck: Present: supple - Respiratory Respiratory effort: normal - Abdominal General gastrointestinal: Present: deferred - Rectal Rectal Exam: deferred Results - Labs CBC & Chem 7: 08/20/19 02:28 08/20/19 02:28 Labs: Abnormal lab results 08/19/19 08/20/19 08/20/19 Range/Units 12:44 02:28 02:28 RBC 2.87 L (3.65-5.03) M/mm3 Hgb 9.2 L (10.1-14.3) gm/dl Hct 27.2 L (30.3-42.9) % RDW 18.3 H (13.2-15.2) % Plt Count 548 H (140-440) K/mm3 Lymph % (Auto) 7.7 L (13.4-35.0) % Lymph # 0.7 L (1.2-5.4) K/mm3 Seg Neutrophils % 85.2 H (40.0-70.0) % PT (12.2-14.9) Sec. INR (0.87-1.13) APTT (24.2-36.6) Sec. Sodium 136 L D 136 L (137-145) mmol/L Potassium 3.5 L (3.6-5.0) mmol/L BUN 3 L 3 L (7-17) mg/dL Iron (37-170) ug/dL TIBC (250-450) mcg/dL Alkaline Phosphatase 167 H (35-129) units/L Total Protein 8.8 H (6.3-8.2) g/dL Albumin 3.4 L (3.9-5) g/dL Folate (7.3-26.0) ng/mL 08/20/19 08/20/19 08/20/19 Range/Units 02:28 09:48 09:48 RBC (3.65-5.03) M/mm3 Hgb (10.1-14.3) gm/dl Hct (30.3-42.9) % RDW (13.2-15.2) % Plt Count (140-440) K/mm3 Lymph % (Auto) (13.4-35.0) % Lymph # (1.2-5.4) K/mm3 Seg Neutrophils % (40.0-70.0) % PT 15.1 H (12.2-14.9) Sec. INR 1.17 H (0.87-1.13) APTT 43.3 H (24.2-36.6) Sec. Sodium (137-145) mmol/L Potassium (3.6-5.0) mmol/L BUN (7-17) mg/dL Iron 21 L (37-170) ug/dL TIBC 146 L (250-450) mcg/dL Alkaline Phosphatase (35-129) units/L Total Protein (6.3-8.2) g/dL Albumin (3.9-5) g/dL Folate 2.00 L (7.3-26.0) ng/mL - Imaging and Cardiology CT scan - abdomen: report reviewed, image reviewed CT scan - chest: report reviewed, image reviewed CT Scan - head: report reviewed, image reviewed CT scan - pelvis: report reviewed, image reviewed MRI - head: report reviewed, image reviewed Assessment and Plan Patient has what appears to be cervical cancer with the development of a left lower extremity DVT and either a PFO or ASD with resultant right common and internal carotid artery thrombus. She has metastatic disease to the lungs and brain as well as what appeared to be foci of arterial thrombus to the brain. The patient will need to be evaluated by urology for her left hydroureteral ureteral nephrosis. Patient will need to be evaluated by [facility] for her cervical cancer. With regards to her DVT, the patient may benefit from placement of an IVC filter. We'll tentatively plan on this tomorrow.
--- NOTE | 2019-08-20 13:32 | Consultation ---
History of Present Illness Consult date: 08/20/19 Reason for Consult: Stroke Chief complaint: left sided weakness History of present illness: Patient is a 34 old woman with a history of HIV, schizoaffective disorder, PTSD, anxiety, history of DVT. The patient was admitted last week, for stroke like symptoms, however she left AMA. Workup at that time revealed that the patient had a right ICA intraluminal thrombus. Patient states that she had been on Eliquis in the past for DVT, however this was stopped a few months later. She states that she had started Eliquis recently over the past 4 days. Patient states that she has had left upper extremity weakness with a past 7-8 days, and after leaving AMA last week, she continued to feel sick, and therefore return to the hospital yesterday. Past History Past Medical History: other (history of HIV, schizoaffective disorder, PTSD, anxiety, history of DVT) Social history: smoking Family history: no significant family history Medications and Allergies Allergies Allergy/AdvReac Type Severity Reaction Status Date / Time divalproex sodium Allergy Unknown Verified 02/23/17 15:13 [From Depakote] risperidone [From Risperdal] Allergy Unknown Verified 02/23/17 15:13 Home Medications Medication Instructions Recorded Confirmed Last Taken Type OLANZapine [Zyprexa] 20 mg PO QHS 08/19/19 08/19/19 Unknown History OXcarbazepine [Trileptal] 600 mg PO BID 08/19/19 08/19/19 Unknown History clonazePAM [KlonoPIN] 2 mg PO BID 08/19/19 08/19/19 Unknown History risperiDONE [RisperDAL] 30 mg PO BID 08/19/19 08/19/19 Unknown History Active Meds: Active Medications Acetaminophen (Tylenol) 650 mg PO Q4H PRN PRN Reason: Pain MILD(1-3)/Fever >100.5/SNYDER Clonazepam (Klonopin) 2 mg PO BID KVNG Sodium Chloride (Nacl 0.9% 1000 Ml) 1,000 mls @ 125 mls/hr IV DIRECT KVNG Last Admin: 08/20/19 02:59 Dose: 125 mls/hr Documented by: Folic Acid 1 mg/ Sodium (Chloride) 50.2 mls @ 200.8 mls/hr IV QDAY K[facility]NG Morphine Sulfate (Morphine) 2 mg IV Q4H PRN PRN Reason: Pain, Moderate (4-6) Last Admin: 08/20/19 09:44 Dose: 2 mg Documented by: Olanzapine (Zyprexa) 20 mg PO QHS [facility] Ondansetron HCl (Zofran) 4 mg IV Q8H PRN PRN Reason: Nausea And Vomiting Oxcarbazepine (Trileptal) 600 mg PO BID KVNG Sodium Chloride (Sodium Chloride Flush Syringe 10 Ml) 10 ml IV BID KVNG Sodium Chloride (Sodium Chloride Flush Syringe 10 Ml) 10 ml IV PRN PRN PRN Reason: LINE FLUSH Review of Systems All systems: negative Gastrointestinal: abdominal pain Neurological: weakness, numbness Physical Examination - Vital Signs Vital Signs: Vital Signs Temp Pulse Resp BP Pulse Ox 97.9 F 109 H 18 110/66 98 08/19/19 11:52 08/19/19 11:52 08/19/19 11:52 08/19/19 11:52 08/19/19 11:52 - Physical Exam Narrative exam: Patient is alert, awake, oriented x4, follows complex commands. PERRL, EOMI, VFF, no facial weakness noted, tongue midline, b/l intact to LT. No dysarthria or aphasia noted. LUE proximal 4/5 distal 1/5, LLE 3/5 limited due to pain in calf, RUE/RLE 5/5. Decreased on Lt. to LT. B/l intact to FTN and HTS. 2+ reflexes throughout. - Constitutional General appearance: uncomfortable - EENT EENT: Present: ATNC, PERRL, mucous membranes moist, hearing intact, vision intact - Respiratory Respiratory: Present: decreased breath sounds - Cardiovascular Cardiovascular: Present: regular rate, normal S1, normal S2 Extremities: Present: no clubbing, cyanosis, other (LLE swelling and erythema) - Gastrointestinal Gastrointestinal: Present: normoactive bowel sounds, soft, tender (in hypogastrium) - Psychiatric Psychiatric: Present: mood/affect appropriate - Level of Consciousness 1a. Level of Consciousness: alert/keenly responsive - LOC Questions 1b. LOC Questions: answers both correctly - LOC Command 1c. LOC Commands: performs tasks correctly - Best Gaze 2. Best Gaze: normal - Visual 3. Visual: no visual loss - Facial Palsy 4. Facial Palsy: normal symmetrical movement - Motor Arm 5a. Motor Arm Left: drift 5b. Motor Arm Right: no drift - Motor Leg 6a. Motor Leg Left: some gravity effort (limited d/t pain in calf) 6b. Motor Leg Right: no drift - Limb Ataxia 7. Limb Ataxia: absent - Sensory 8. Sensory: mild/moderate sensory loss - Best Language 9. Best Language: no aphasia - Dysarthria 10. Dysarthria: normal - Extinction and Inattention 11. Extinction/Inattention: no abnormality - Scoring Total Score: 4 Stroke Severity: Minor Stroke Results - Laboratory Findings CBC and BMP: 08/20/19 02:28 08/20/19 02:28 Abnormal Lab Findings: Abnormal Labs 08/19/19 08/19/19 08/20/19 12:44 12:44 02:28 RBC 3.32 L 2.87 L Hgb 9.7 L 9.2 L Hct 29.4 L 27.2 L RDW 18.6 H 18.3 H Plt Count 535 H 548 H Lymph % (Auto) 8.1 L 7.7 L Lymph # 0.9 L 0.7 L Seg Neutrophils % 86.5 H 85.2 H Seg Neutrophils # 9.3 H PT INR APTT Sodium 136 L D Potassium 3.5 L BUN 3 L Iron TIBC Alkaline Phosphatase 167 H Total Protein 8.8 H Albumin 3.4 L Folate 08/20/19 08/20/19 08/20/19 02:28 02:28 09:48 RBC Hgb Hct RDW Plt Count Lymph % (Auto) Lymph # Seg Neutrophils % Seg Neutrophils # PT 15.1 H INR 1.17 H APTT 43.3 H Sodium 136 L Potassium BUN 3 L Iron 21 L TIBC 146 L Alkaline Phosphatase Total Protein Albumin Folate 08/20/19 09:48 RBC Hgb Hct RDW Plt Count Lymph % (Auto) Lymph # Seg Neutrophils % Seg Neutrophils # PT INR APTT Sodium Potassium BUN Iron TIBC Alkaline Phosphatase Total Protein Albumin Folate 2.00 L Assessment and Plan Patient is a 34 old woman with a history of HIV, schizoaffective disorder, PTSD, anxiety, history of DVT, who presents with left upper extremity weakness. According the patient's clinical findings, she has had an acute ischemic stroke in the right MCA territory, and has also been noted to have a right ICA intraluminal thrombus. Patient also has DVT, and also is noted to have a pelvic mass on recent CT scan. It is possible that the patient has right ICA intraluminal thrombus secondary to hypercoagulable state in the setting of carcinoma. Plan: 1. Stroke: - MRI of brain: Found to have subacute areas of infarct in the right hemisphere. Areas of contrast enhancement or possible subacute stroke versus metastatic lesions. - CTA head and neck on August 14: Notable for intraluminal thrombus in right ICA. CT head on : Significant for right hemispheric small embolic infarcts. Given that the patient has a left lower extremity DVT, likely due to pelvic mass compressing upon vein, and inpatient has right ICA intraluminal thrombus, risks and benefits of anticoagulation were discussed with patient as well as hematology team. It was decided that benefits of anticoagulation with therapeutic heparin at this time out weight the risks, and therefore patient is started on therapeutic heparin. - Will also start patient on aspirin 81 mg daily. - We'll check CTA head and neck, as patient was on Eliquis over the last week prior to being admitted yesterday, and therefore may have had some improvement in right ICA intraluminal thrombus. - Echocardiogram pending. - Further workup of pelvic mass and lung masses per primary team and oncology. PT/OT/ST DVT prophylaxis: Heparin. 2. Blood pressure: - Recommend target normotension, as it has been more than 48 hours symptom onset.\ - Patient will require close neurologic monitoring, as there is a right ICA intraluminal thrombus. If there is any worsening in neurologic status, this will require urgent attention, the patient may be a candidate for thrombectomy. Please call primary team and neurology stat in case there is any change in neurologic status. - We'll continue to monitor neurologic status. Thank you for allowing me to take part in the care of this patient. Anthony Kelly MD Neurology
[2019-08-20 13:37] LABS: Bilirubin,Urine NEG (Negative); Blood,Urine LG (Negative); Color,Urine Yellow (Yellow); Urobilinogen,Urine < 2.0 mg/dL (<2.0)
[2019-08-20 13:50] LABS: Bacteria,Urine 1+ /HPF (Negative); Mucus,Urine 1+ /HPF
[2019-08-20] MEDS ORDERED: OXcarbazepine 300 MG TAB PO SCH (14:00)
[2019-08-20] MEDS ORDERED: ASPIRIN EC 81 MG TAB PO SCH (19:00)
[2019-08-20 19:43] VITALS: BP 128/74
[2019-08-20 20:00] LABS: Hematocrit 24.6 % (30.3-42.9); Hemoglobin 8.6 gm/dl (10.1-14.3)
[2019-08-20 20:17] LABS: INR 1.22 (0.87-1.13)
[2019-08-20 20:18] LABS: Partial Thromboplastin Time 48.5 Sec. (24.2-36.6)
[2019-08-20] MEDS ORDERED: RISPERIDONE PO SCH (22:00)
[2019-08-20] MEDS ORDERED: NON-FORMULARY EACH (Oxcarbazepine [Trileptal] 600 MG) PO SCH (22:00)
[2019-08-20] MEDS ORDERED: OLANZAPINE 20 MG PO SCH (22:00)
--- NOTE | 2019-08-21 07:07 | Discharge Summary ---
Providers - Providers Date of Admission: 08/20/19 00:51 Date of discharge: 08/21/19 Attending physician: ROXANNE SHEPARD 08/19/19 23:35 Consult to Physician [CONS] Routine Comment: Dr. Walker spoke with Dr. Chris @ [id number] Consulting Provider: CECY CHRIS Physician Instructions: Reason For Exam: dvt 08/20/19 00:51 Consult to Physician [CONS] Routine Comment: Consulting Provider: VICENTE BROWN Physician Instructions: Reason For Exam: renal mass 08/20/19 00:56 Consult to Physician [CONS] Routine Comment: Dr. Llanes spoke with Dr. Mercado @ [phone] Consulting Provider: SAWYER MERCADO Physician Instructions: Reason For Exam: renal mass, mets to lung, 08/20/19 01:07 Consult to Physician [CONS] Routine Comment: Consulting Provider: CODI GUTIERREZ Physician Instructions: Reason For Exam: dvt/emboli to brain, mural thromus 08/20/19 08:17 Consult to Physician [CONS] Routine Comment: Consulting Provider: BO CHILDERS Physician Instructions: Reason For Exam: DVT,embolic CVA, cardiac shunt ? 08/20/19 13:09 Consult to Physician [CONS] Urgent Comment: Consulting Provider: CHASTITY ACOSTA Physician Instructions: Reason For Exam: critical care management Primary care physician: [facility]ENUE ATTENDANT Hospitalization Condition: Serious Hospital course: 34-year-old female patient with a history of DVT of left AMA 4 days ago from ER was admitted through emergency room today with left leg DVT and thrombus involving the right internal and common carotid arteries. CTA of the chest as well as CTA of the head and neck and CT of the head which show areas of suspicion for metastatic disease to the brain as well as multiple metastatic foci in both lungs. MRI of the brain show both embolic and metastatic disease predominantly to the right hemisphere. She underwent a CTA of the abdomen and pelvis which demonstrates marked hydronephrosis on the left secondary to what appears to be cervical cancer with local extension.Patient also has lower abdominal swelling as well as left arm weakness. Patient was started on heparin drip --Embolic CVA versus brain metastases Neurology consultation, neurochecks For the neuro workup . Cardiology consultation to rule out Cardioembolic causes of embolic CVA --Multiple pulmonary masses; probably metastatic lesion Areas of possible infection, empiric antibiotics, pulmonary consult --Mural thrombus in the internal carotid artery bifurcation --Extensive DVT of the lower left lower extremity Vascular and hematology evaluated the patient Initially Started on heparin drip, however hematology discontinued Due to risk of hemorrhagic conversion of embolic CVA/brain metastases Vascular evaluation noted and appreciated, considering IVC filter Placement --h/oCervical cancer with cavitary mets to the lung Hematology oncology following --Mild hyponatremia: IV fluids Closely monitor electrolytes --Hypokalemia corrected; Monitor electrolytes --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
[2019-08-21] MEDS ORDERED: FOLIC ACID 1 MG in SODIUM CHLORIDE 0.9% 50 ML IV SCH (10:00)
== END 2019-08-20 21:05 | disposition left against medical advice (07) | DRG 65 ==
LOC: ED 11:27 → CC1 08-20 00:51
PROVIDERS: ADMIT Internal Medicine; ATTEND Internal Medicine
DX: I63.9 Cerebral infarction, unspecified (principal); I82.432 Acute embolism and thrombosis of left popliteal vein; I82.422 Acute embolism and thrombosis of left iliac vein; C64.9 Malignant neoplasm of unspecified kidney, except renal pelvis; C78.00 Secondary malignant neoplasm of unspecified lung; E87.1 Hypo-osmolality and hyponatremia; I65.22 Occlusion and stenosis of left carotid artery; E87.6 Hypokalemia; Z53.29 Procedure and treatment not carried out because of patient's decision for other reasons; Z21 Asymptomatic human immunodeficiency virus [HIV] infection status; F17.210 Nicotine dependence, cigarettes, uncomplicated; F43.10 Post-traumatic stress disorder, unspecified; F41.9 Anxiety disorder, unspecified; F25.9 Schizoaffective disorder, unspecified; Z86.718 Personal history of other venous thrombosis and embolism; Z79.01 Long term (current) use of anticoagulants; Z79.899 Other long term (current) drug therapy; Z88.1 Allergy status to other antibiotic agents; Z88.8 Allergy status to other drugs, medicaments and biological substances; Z82.49 Family history of ischemic heart disease and other diseases of the circulatory system
CPT/HCPCS: 36415; 70450; 70553; 71046; 71275; 74174; 80048; 80053; 81001; 82140; 82607; 82728; 82747; 83550; 85014; 85018; 85025; 85049; 85520; 85610; 85730; 87040; 87076; 87086; 87186; 93005; 93010; 93306; 94760; G0378; A9577; J1644; J2270; J2543; J3370; J7030; Q9967

== ENCOUNTER 2019-08-20 23:17 | Emergency (ER) | payer MEDICAID | END 2019-08-20 23:20 | disposition left against medical advice (07) | LOC: ED 23:17 | DX: Z00.8 Encounter for other general examination (principal); Z53.21 Procedure and treatment not carried out due to patient leaving prior to being seen by health care provider ==